=== PATIENT | female | born 1960 | race Caucasian/White ===

== ENCOUNTER 2024-05-11 07:57 | Outpatient (OUT) | payer OTHER, SELFPAY ==
--- NOTE | 2024-05-11 08:07 | MM_ITS ---
Patient Name: NATHAN GONZALEZ MR#: [id number] : 1960 Exam Date: 05/11/2024 Ordering Doctor: Non-Staff Physician RADIOLOGY REPORT PROCEDURE: MM TOMOSYNTHESIS DIAGNOSTIC BI, 05/11/2024, 08:11 US BREAST LT LIMITED, 05/11/2024, 08:34 COMPARISON: MG MAMM SCREEN 3D TIARA CAD, 03/26/2023. INDICATIONS: Left Breast Cyst Calculator Name NCI Breast Cancer Risk Assessment Tool 5 Year Breast Cancer Risk Not Reported. Lifetime Breast Cancer Risk Not Reported. Personal Breast Cancer No Personal Ovarian Cancer No Treatments None Family Cancers None LOCATION: [facility] BREAST COMPOSITION: There are scattered areas of fibroglandular density. FINDINGS: DIAGNOSTIC CATEGORY 2--BENIGN FINDING. NO CHANGE FROM COMPARISON. Scattered benign-appearing nodules are present. Scattered benign-appearing calcifications are present. Scattered benign-appearing lymph nodes are present. RIGHT BREAST: No significant suspicious finding. LEFT BREAST: No significant suspicious finding. Ultrasound demonstrates at the 8 o'clock position 2.4 cm from the nipple 2.1 x 1.3 x 1.9 cm area of anechoic echogenicity likely a tiny cyst. The previously noted cystic lesion is not definitively seen RECOMMENDATIONS: ROUTINE MAMMOGRAM AND CLINICAL EVALUATION IN 12 MONTHS. PLEASE NOTE: A NORMAL MAMMOGRAM DOES NOT EXCLUDE THE POSSIBILITY OF BREAST CANCER. A CLINICALLY SUSPICIOUS PALPABLE LUMP SHOULD BE BIOPSIED. Dictated by: Christopher Zhou MD on 05/11/2024 at 08:52 Approved by: Christopher Zhou MD on 05/11/2024 at 08:53
--- NOTE | 2024-05-11 08:08 | XR_ITS ---
The [address] [address] Patient Name: NATHAN GONZALEZ MRN: [id number] date: 1960 Sex: F Assigned Patient Location: [facility] Current Patient Location: [facility] Accession/Order Number: [id number] Exam Date: 05/11/2024 08:51 Report Date: 05/11/2024 20:10 At the request of: NON-STAFF PHYSICIAN Procedure: XR chest 2V EXAM: XR chest 2V HISTORY: Shortness Of Breath COMPARISON: None. TECHNIQUE: Upright PA and lateral chest x-ray FINDINGS: The heart is not enlarged and the vasculature is not distended. No acute infiltrate, effusion or pneumothorax is identified. Mild flattening of the hemidiaphragms suggest COPD. The osseous structures are grossly intact. Mild scoliosis the spine is noted. XR/XR chest 2V IMPRESSION: No acute infiltrate or evidence of cardiac decompensation. Direct comparison with a previous study may be helpful in determining the chronicity of these findings. Electronically authenticated by: JANET CLARK Date: 05/11/2024 20:10
== END 2024-05-11 07:58 | disposition home or self-care (01) ==
LOC: MAMMO 07:57
DX: N60.02 Solitary cyst of left breast (principal); R06.02 Shortness of breath
CPT/HCPCS: 71046; 76642; 77066; G0279

== ENCOUNTER 2024-05-23 18:49 | Outpatient (OUT) | payer OTHER, SELFPAY ==
--- NOTE | 2024-05-23 | US_ITS ---
The [address] [address] Patient Name: NATHAN GONZALEZ MRN: [id number] date: 1960 Sex: F Assigned Patient Location: [place] Current Patient Location: Accession/Order Number: [id number] Exam Date: 05/23/2024 19:48 Report Date: 05/23/2024 22:14 At the request of: QI DILLON Procedure: US venous doppler LE LT US venous doppler LE LT, 05/23/2024 6:48 PM CDT: History: TENDERNESS OF LEFT CALF M79.662. Comparison: None. Technique: Grayscale, color Doppler, and spectral Doppler imaging of the deep veins of the left lower extremity were performed. Findings: The deep veins of the left lower extremity demonstrate normal compression, Spectral flow, and color Doppler signal. There is no evidence of deep vein thrombosis. US/US venous doppler LE LT Impression: No evidence of deep vein thrombosis within the left lower extremity. Electronically authenticated by: NILESH BARAJAS Date: 05/23/2024 22:14
== END 2024-05-23 18:50 | disposition home or self-care (01) ==
PROVIDERS: PCP Internal Medicine; Visit Provider Physician Assistant
DX: I73.9 Peripheral vascular disease, unspecified (principal); M79.662 Pain in left lower leg
CPT/HCPCS: 93971

== ENCOUNTER 2024-11-17 12:34 | Outpatient (OUT) | payer OTHER, SELFPAY ==
--- OUTSIDE RECORDS SUMMARY | 2024-11-17 12:37 | XMS_ITS | CCD ---
Author Organization [facility] Care Team Providers Care 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 Name Role Phone Anand Manning MD Primary Care Provider [phone] ANAND MANNING Attending Unavailable MARIA ISABEL PHAM Attending Unavailable MARIA ISABEL PHAM Attending Unavailable MARIA ISABEL PHAM Attending Unavailable Allergies Allergy Classification Reported Allergen(s) Allergy Type Date of Onset Reaction(s) Facility (7 sources) gabapentin Drug Allergy 4 Other [facility] Work Phone: (7 sources) Sulfamethizole Allergy to substance 4 [facility] (7 sources) Sulfamethoxazole / Trimethoprim Drug Allergy 4 Rash [facility] (7 sources) Sulfur Drug Allergy 6 [facility] (7 sources) Respiratory Syncytial Virus Vaccine, Recombinant Allergy to substance 4 [facility] Medications Current Medications Medication Drug Class(es) Dates Sig (Normalized) Sig (Original) [id number] 200 actuat albuterol 0.09 mg/actuat metered dose inhaler (7 sources) beta2-Adrenergic Agonist Start: 3 take 2 puff(s) by inhalation every four hours albuterol HFA 90 mcg/act inhaler Inhale 2 puffs every 4 (four) hours if needed 08/02/2023 Active ARIPiprazole 2 mg oral tablet (2 sources) Atypical Antipsychotic Start: 5 take 1 tablet by mouth once daily ARIPiprazole (Abilify) 2 MG tablet Take 2 mg by mouth Daily 10/23/2024 Active 24 hr buPROPion hydrochloride 150 mg extended release oral tablet (2 sources) Aminoketone Start: 4 take 1 tablet by mouth once daily buPROPion XL (Wellbutrin XL) 150 MG 24 hr tablet Take 150 mg by mouth Daily 06/27/2024 Active busPIRone hydrochloride 10 mg oral tablet (2 sources) Start: 5 take 1 tablet by mouth once daily busPIRone (Buspar) 10 MG tablet Take 10 mg by mouth 1 (one) time each day 10/23/2024 Active clopidogrel 75 mg oral tablet (7 sources) P2Y12 Platelet Inhibitor take 1 tablet by mouth once daily clopidogrel (Plavix) 75 MG tablet Take 75 mg by mouth Daily Active hydrOXYzine pamoate 50 mg oral capsule (2 sources) Antihistamine Start: 5 hydrOXYzine pamoate (Vistaril) 50 MG capsule Take 50 mg by mouth as needed at bedtime for anxiety 10/23/2024 Active 24 hr isosorbide mononitrate 30 mg extended release oral tablet (7 sources) Nitrate Vasodilator take 1 tablet by mouth in the morning, then take 1 tablet by mouth every twenty-four hours isosorbide mononitrate ER (Imdur) 30 MG 24 hr tablet Take 30 mg by mouth in the morning. Do not crush or chew.. Active lisinopril 5 mg oral tablet (7 sources) Angiotensin Converting Enzyme Inhibitor Start: 4 take 1 tablet by mouth once daily lisinopril 5 MG tablet Indications: Atrioventricular gay re-entry tachycardia (CMS/HCC) Take 1 tablet (5 mg) by mouth Daily 90 tablet 2 05/24/2024 Active meloxicam 7.5 mg oral tablet (7 sources) Nonsteroidal Anti-inflammatory Drug Start: 4 End: 5 take 1 tablet by mouth every twenty-four hours as needed meloxicam (Mobic) 7.5 MG tablet Take 7.5 mg by mouth Daily as needed 02/28/2024 10/25/2024 Discontinued (Other) methylPREDNISolone (6 sources) Corticosteroid Start: 4 End: 5 methylPREDNISolone (Medrol Dospak) 4 MG tablets Indications: De Quervain's tenosynovitis, left Follow schedule on package instructions 21 tablet 08/02/2024 10/25/2024 Discontinued (Therapy completed) Start: 08-02-2024 methylPREDNISo lone (Medrol Dospak) 4 MG tablets Indications: De Quervain's tenosynovitis, left Follow schedule on package instructions 21 tablet 08/02/2024 Active 24 hr metoprolol succinate 25 mg extended release oral tablet (7 sources) beta-Adrenergic Dorota take 1 tablet by mouth once daily metoprolol succinate XL (Toprol-XL) 25 MG 24 hr tablet Take 25 mg by mouth Daily Do not crush or chew. Active mirtazapine 7.5 mg oral tablet (2 sources) Start: 10-23-19 take 1 tablet by mouth at bedtime mirtazapine (Remeron) 7.5 MG tablet Take 7.5 mg by mouth at bedtime 10/23/2024 Active rosuvastatin calcium 40 mg oral tablet (7 sources) HMG-CoA Reductase Inhibitor take 1 tablet by mouth at bedtime rosuvastatin (Crestor) 40 MG tablet Take 40 mg by mouth at bedtime Active sertraline 50 mg oral tablet (2 sources) Serotonin Reuptake Inhibitor Start: 09-22-20 take 1 tablet by mouth once daily sertraline (Zoloft) 50 MG tablet Take 50 mg by mouth Daily 09/22/2024 Active tiZANidine 4 mg oral tablet (2 sources) Central alpha-2 Adrenergic Agonist Start: 10-25-19 End: 11-04-19 take 1 tablet by mouth every eight hours for muscle spasms tiZANidine (Zanaflex) 4 MG tablet Indications: Muscle spasms of neck Take 1 tablet (4 mg) by mouth every 8 (eight) hours if needed for muscle spasms for up to 10 days 30 tablet 10/25/2024 11/04/2024 Active Problems Active Problems Problem Classification Problem Date Documented Date Episodic/Chronic Cardiac dysrhythmias (7 sources) Re-entrant atrioventricular node tachycardia; Translations: [Atrioventricular gay re-entry tachycardia] Onset: 08-08-2020 05-12-2024 Chronic Headache; including migraine (2 sources) Headache; Translations: [Left-sided headache] 10-25-2024 Episodic Mood disorders (4 sources) Moderate major depression, single episode; Translations: [Major depressive disorder, single episode, moderate] Onset: 10-25-2024 10-25-2024 Chronic Osteoarthritis (7 sources) Osteoarthritis; Translations: [Unspecified osteoarthritis, unspecified site] Onset: 02-02-2018 05-12-2024 Chronic Other circulatory disease (6 sources) History of cerebrovascular accident without residual deficits; Translations: [Personal history of transient ischemic attack (TIA), and cerebral infarction without residual deficits] Onset: 10-25-2024 10-25-2024 Episodic Other connective tissue disease (2 sources) Tenosynovitis of left radial styloid; Translations: [Radial styloid tenosynovitis [de Quervain]] 08-02-2024 Episodic Other connective tissue disease (2 sources) Muscle spasm of cervical muscle of neck; Translations: [Other muscle spasm] 10-25-2024 Episodic Other connective tissue disease (2 sources) Other symptoms and signs involving the musculoskeletal system; Translations: [Other musculoskeletal symptoms referable to limbs] 10-25-2024 Episodic Other nervous system disorders (4 sources) Paresthesia of left upper limb; Translations: [Paresthesia of skin] 10-25-2024 Episodic Other screening for suspected conditions (not mental disorders or infectious disease) (2 sources) Patient encounter status; Translations: [Encounter for screening for malignant neoplasm of colon] 08-02-2024 Episodic Peripheral and visceral atherosclerosis (16 sources) Intermittent claudication; Translations: [Peripheral vascular disease, unspecified] Onset: 07-21-2023 05-12-2024 Chronic Past or Other Problems Problem Classification Problem Date Documented Da te Episodic/Chronic Cardiac dysrhythmias (7 sources) Palpitations; Translations: [Palpitations] Onset: 03-11-2011 05-12-2024 Episodic Headache; including migraine (2 sources) Headache; including migraine 10-25-2024 Nonspecific chest pain (7 sources) Acute chest pain; Translations: [Chest pain, unspecified] Onset: 07-21-2023 05-12-2024 Episodic Other injuries and conditions due to external causes (7 sources) Injury of head; Translations: [Unspecified injury of head, initial encounter] Onset: 01-03-2017 05-12-2024 Episodic Other nutritional; endocrine; and metabolic disorders (7 sources) Underweight; Translations: [Underweight] Onset: 05-12-2024 05-12-2024 Episodic Spondylosis; intervertebral disc disorders; other back problems (14 sources) Backache; Translations: [Dorsalgia, unspecified] Onset: 02-02-2018 05-12-2024 Episodic Sprains and strains (7 sources) Neck sprain; Translations: [Sprain of joints and ligaments of unspecified parts of neck, initial encounter] Onset: 01-03-2017 05-12-2024 Episodic Superficial injury; contusion (14 sources) Contusion of face; Translations: [Contusion of other part of head, initial encounter] Onset: 01-03-2017 05-12-2024 Episodic Syncope (7 sources) Syncope; Translations: [Syncope and collapse] Onset: 05-12-2024 05-12-2024 Episodic Unclassified (2 sources) Left arm weakness 10-25-2024 Unclassified (2 sources) Peripheral arterial disease (CMS/HCC) 10-25-2024 Viral infection (7 sources) Disease caused by 2019-nCoV; Translations: [COVID-19] Onset: 10-15-2021 05-12-2024 Episodic Vital Signs Date Time Vital Sign Value Performing Clinician Gabriel dougherty 10-25-2024 08:10-0500 Body height 172.7 cm Maria Isabel Hemmer PA Work Phone: [facility] 10-25-2024 08:10-0500 Body mass index (BMI) [Ratio] 17.42 kg/m2 Maria Isabel Hemmer PA Work Phone: [facility] 10-25-2024 08:10-0500 Body weight 51.98 kg Maria Isabel Hemmer PA Work Phone: [facility] 10-25-2024 08:10-0500 Diastolic blood pressure 64 mm[Hg] Maria Isabel Hemmer PA Work Phone: [facility] 10-25-2024 08:10-0500 Heart rate 72 /min Maria Isabel Hemmer PA Work Phone: [facility] 10-25-2024 08:10-0500 Respiratory rate 16 /min Maria Isabel Hemmer PA Work Phone: [facility] 10-25-2024 08:10-0500 SaO2% (BldA) [Mass fraction] 96 % Maria Isabel Hemmer PA Work Phone: [facility] 10-25-2024 08:10-0500 Systolic blood pressure 110 mm[Hg] Maria Isabel Hemmer PA Work Phone: [facility] 08-02-2024 11:04-0400 Body height 172.7 cm Maria Isabel Hemmer PA Work Phone: [facility] 08-02-2024 11:04-0400 Body mass index (BMI) [Ratio] 16.97 kg/m2 Maria Isabel Hemmer PA Work Phone: [facility] 08-02-2024 11:04-0400 Body weight 50.62 kg Maria Isabel Hemmer PA Work Phone: [facility] 08-02-2024 11:04-0400 Diastolic blood pressure 82 mm[Hg] Maria Isabel Hemmer PA Work Phone: [facility] 08-02-2024 11:04-0400 Heart rate 93 /min Maria Isabel Hemmer PA Work Phone: [facility] 08-02-2024 11:04-0400 Respiratory rate 16 /min Maria Isabel Hemmer PA Work Phone: [facility] 08-02-2024 11:04-0400 SaO2% (BldA) [Mass fraction] 97 % Maria Isabel Hemmer PA Work Phone: [facility] 08-02-2024 11:04-0400 Systolic blood pressure 126 mm[Hg] Maria Isabel Hemmer PA Work Phone: [facility] Encounters Encounter Date Encounter Type Care Provider Facility Start: 10-25-2024 End: 10-25-2024 Bamboo flowsheet Maria Isabel Flores Hemmer PA Work Phone: [facility] Start: 10-25-2024 End: 10-25-2024 Bamboo flowsheet Maria Isabel M Hemmer PA Work Phone: [facility] Start: 10-25-2024 End: 10-25-2024 Office outpatient visit 25 minutes Maria Isabel Flores Hemmer PA Work Phone: [facility] Comment on above: Muscle spasms of nec k (Primary Dx); Left-sided headache; Left arm weakness; Paresthesia of left arm; Peripheral arterial disease (CMS/HCC); History of CVA (cerebrovascular accident) without residual deficits; Current moderate episode of major depressive disorder without prior episode (HCC) (CMS/HCC) Start: 10-25-2024 End: 10-25-2024 ambulatory MARIA ISABEL Valente SANTANA Not Available Start: 09-19-2024 End: 09-20-2024 Telephone encounter Maria Isabel Pham PA Work Phone: [facility] Start: 08-02-2024 End: 08-02-2024 Bamboo flowsheet Maria Isabel Pham PA Work Phone: [facility] Start: 08-02-2024 End: 08-02-2024 Bamboo flowsheet Maria Isabel Valente Santana PA Work Phone: [facility] Start: 08-02-2024 End: 08-02-2024 Office outpatient visit 15 minutes Maria Isabel Pham PA Work Phone: [facility] Comment on above: De Quervain's tenosy novitis, left (Primary Dx); Screening for malignant neoplasm of colon Start: 08-02-2024 End: 08-02-2024 ambulatory MARIA ISABEL PHAM Not Available Start: 05-23-2024 End: 05-23-2024 ambulatory MARIA ISABEL Valente SANTANA Not Available Start: 05-12-2024 End: 05-12-2024 ambulatory ANAND MANNING Not Available Procedures Date Procedure Procedure Detail Performing Clinician Start: 05-11-2024 Mammography Maria Isabel Foxvalente sauceda PA Work Phone: Plan of Treatment Date Care Activity Detail Author Start: 09-08-2027 Screening for malign ant neoplasm of colon [facility] Start: 05-11-2025 Screening for malign ant neoplasm of breast Mammogram [facility] Start: 04-17-2025 Influenza vaccination Influenza Vacc ine (#1) [facility] Comment on above: Postponed from 06/19 (Patient Refused) Start: 10-25-2024 End: 10-25-2025 CT Head WO contrast CT head wo IV contrast Imaging Routine Left-sided headache Left arm weakness Paresthesia of left arm Peripheral arterial disease (CMS/HCC) History of CVA (cerebrovascular accident) without residual deficits Expected: 10/25/2024, Expires: 10/25/2025 [facility] Work Phone: Comment on above: Expected: 10/25/2024 , Expires: 10/25/2025 Start: 10-25-2024 End: 10-25-2024 Patient encounter procedure 10/25/2024 8:00 AM EST Office Visit [facility] [address] [place] [address] Maria Isabel Pham PA [address] [place] [address] Arrived [facility] Comment on above: Arrived Start: 08-02-2024 End: 08-02-2025 Noninvasive colorectal cancer DNA and occult blood screening [Presence] in Stool Cologuard colon cancer screening Lab Routine Screening for malignant neoplasm of colon Expected: 08/02/2024 (Approximate), Expires: 08/02/2025 [facility] Work Phone: Comment on above: Expected: 08/02/2024 (Approximate), Expires: 08/02/2025 Start: 08-02-2024 End: 08-02-2024 Patient encounter procedure 08/02/2024 11:00 AM EDT Office Visit [facility] [address] [place] [address] Maria Isabel Pham PA [address] [place] [address] Arrived [facility] Comment on above: Arrived Start: 06-19-2024 Influenza vaccination Influenza Vacc ine (#1) [facility] Start: 1991 Screening for malign ant neoplasm of cervix [facility] Start: 1982 Screening for malign ant neoplasm of cervix Pap Smear [facility] Start: 1961 Screening for malign ant neoplasm of colon [facility] Immunizations Immunization Date Immunization Notes Care Provider Su randle 01-11-2016 hepatitis A vaccine, adult dosage Maria Isabel CORDOVA Work Phone: [facility] Payers Date Payer Category Payer Private Health Insurance JOURDAN WHITTINGTON [id number] 2023 Unknown [id number] 1960 Unknown [id number] 1960 Unknown [id number] 1960 Unknown [id number] 1960 Unknown [id number] Social History Date Type Detail Facility Start: 05-12-2024 Tobacco smoking stat [facility] Ex-smoker [facility] History of tobacco use Current smoker [facility] History of tobacco use Cigarette Smoker [facility] Start: 05-12-2024 Tobacco use and exposure Smoke less tobacco non-user [facility] Start: 05-23-2024 End: 10-25-2024 Alcoholic beverage intake Ex-drinker (finding) [facility] Start: 05-23-2024 End: 10-25-2024 History of Social function [facility] Start: 05-23-2024 End: 10-25-2024 Tobacco use panel [facility] Start: 1960 Sex assigned at Not on file [facility] History of Present illness Narrative 10-25-2024 ART Oneal - 10/25/2024 8:00 AM EST Note Date & Type Note Facility 10-25-2024 History of Presen t illness Narrative Images from the original note were not included. Subjective Patient ID: Shi Valenzuela is a 63 y.o. female who presents for left arm pain. Shi is present today for evaluation of left arm pain. Admits pain and numbness all the time but last it got worse, she did get a headache with sharp pains on the left side and numbness on the left side of her face that she was not sure was d/t the pain in her left arm or not. The numbness in her face has resolved, still having sharp pains in her head, still has the numbness in her whole arm. Left arm feels weaker. On , felt like her eyes couldn't focus for a few minutes, like there was a film on them. Eye drops helped. Also having neck pain, did try heat which relaxed it a little, also tried ice, but that did not help. Neck pain got worse last night. Denies any recent injuries or overuse. Used to see a chiropractor in [place]. She was seen on 08/02/24 Dx. Walker's Tensynovitis, rx'd Medrol daina vik and she states that did help. States her moved her up here from [place] after living there for 17 years. When they moved to [place], he ended up leaving her and going to move in with his daughter. They had been together for 41 years. She has had a hard time dealing with this and is seeing a mental health specialist in [place], Kerry Guzman, [facility]. Medications are helping. Current Outpatient Medications on File Prior to Visit Medication Sig Dispense Refill ARIPiprazole (Abilify) 2 MG tablet Take 2 mg by mouth Daily buPROPion XL (Wellbutrin XL) 150 MG 24 hr tablet Take 150 mg by mouth Daily busPIRone (Buspar) 10 MG tablet Take 10 mg by mouth 1 (one) time each day hydrOXYzine pamoate (Vistaril) 50 MG capsule Take 50 mg by mouth as needed at bedtime for anxiety mirtazapine (Remeron) 7.5 MG tablet Take 7.5 mg by mouth at bedtime sertraline (Zoloft) 50 MG tablet Take 50 mg by mouth Daily albuterol HFA 90 mcg/act inhaler Inhale 2 puffs every 4 (four) hours if needed clopidogrel (Plavix) 75 MG tablet Take 75 mg by mouth Daily isosorbide mononitrate ER (Imdur) 30 MG 24 hr tablet Take 30 mg by mouth in the morning. Do not crush or chew.. lisinopril 5 MG tablet Take 1 tablet (5 mg) by mouth Daily 90 tablet 2 metoprolol succinate XL (Toprol-XL) 25 MG 24 hr tablet Take 25 mg by mouth Daily Do not crush or chew. rosuvastatin (Crestor) 40 MG tablet Take 40 mg by mouth at bedtime [DISCONTINUED] meloxicam (Mobic) 7.5 MG tablet Take 7.5 mg by mouth Daily as needed [DISCONTINUED] methylPREDNISolone (Medrol Dospak) 4 MG tablets Follow schedule on package instructions 21 tablet 0 No current facility-administered medications on file prior to visit. I have reviewed and reconciled the history and medication list with the patient today. Allergies Allergen Reactions Gabapentin Other confusion Rsvpref3 Vaccine Recombinant Adjuvanted [Respiratory Syncytial Virus Vaccine, Recombinant] Sulfamethizole Sulfur Sulfamethoxazole-Trimethoprim Rash Social History Tobacco Use Smoking status: Former Types: Cigarettes Smokeless tobacco: Never Vaping Use Vaping status: Never Used Substance Use Topics Alcohol use: Not Currently Drug use: Yes Types: Marijuana Family History Problem Relation Name Age of Onset Cancer Mother Stroke Paternal Grandmother Heart disease Paternal Grandfather Past Medical History: Diagnosis Date Allergic Benzodiazepine abuse in remission (CMS/HCC) Chronic hepatitis C without hepatic coma (CMS/HCC) Idiopathic scoliosis of lumbar region Marijuana smoker PVD (peripheral vascular disease) (CMS/HCC) Sciatica, right side Spondylolisthesis at L4-L5 level Spondylolisthesis at L5-S1 level Stroke (CMS/HCC) 1990 Tobacco dependence Vitamin D deficiency Past Surgical History: Procedure Laterality Date TUBAL LIGATION 1992 VASCULAR SURGERY Right 07/24/2023 Cath with Stent Placement SFA Visit Vitals BP 110/64 Pulse 72 Resp 16 Ht 5' 8 Wt 114 lb 9.6 oz SpO2 96% BMI 17.42 kg/m Smoking Status Former BSA 1.58 m Review of Systems Constitutional: Negative for chills, fatigue and fever. Respiratory: Negative for cough, shortness of breath and wheezing. Cardiovascular: Negative for chest pain, palpitations and leg swelling. Gastrointestinal: Negative for abdominal pain, constipation, diarrhea, nausea and vomiting. Musculoskeletal: Positive for arthralgias. Skin: Negative for rash. Neurological: Positive for weakness, numbness and headaches. Negative for facial asymmetry and speech difficulty. Objective Physical Exam Constitutional: General: She is not in acute distress. Appearance: Normal appearance. She is well-developed. HENT: Head: Normocephalic and atraumatic. Eyes: General: No scleral icterus. Conjunctiva/sclera: Conjunctivae normal. Cardiovascular: Rate and Rhythm: Normal rate and regular rhythm. Heart sounds: Normal heart sounds. No murmur heard. Pulmonary: Effort: Pulmonary effort is normal. No respiratory distress. Breath sounds: Normal breath sounds. No wheezing, rhonchi or rales. Musculoskeletal: Right hand: Normal pulse. Left hand: Normal pulse. Cervical back: Spasms (Left), tenderness and bony tenderness present. Pain with movement present. Normal range of motion. Comments: Strength 5/5 for BUE and left shoulder abduction to resistance is 5-/5, electrician second is 5-/5 on left Skin: General: Skin is warm and dry. Neurological: General: No focal deficit present. Mental Status: She is alert and oriented to person, place, and time. Cranial Nerves: Cranial nerves 2-12 are intact. Sensory: Sensation is intact. Motor: Tremor (Fine intention tremor right hand) present. Coordination: Coordination is intact. Gait: Gait is intact. Psychiatric: Mood and Affect: Mood normal. Behavior: Behavior normal. Assessment/Plan Diagnoses and all orders for this visit: Muscle spasms of neck - tiZANidine (Zanaflex) 4 MG tablet; Take 1 tablet (4 mg) by mouth every 8 (eight) hours if needed for muscle spasms for up to 10 days Provided pt with prescription for the above to use as needed. Advised caution as may cause drowsiness. Encouraged gentle heat, gentle stretches. Could consider Massage Therapy. If no improvement, may need PT or x-rays for further evaluation. Left-sided headache - CT head wo IV contrast; Future Due to h/o CVA and current symptoms, will obtain CT of the brain for further evaluation. Will notify pt of results once received. Symptoms have improved, so will not order STAT, but she continues to have weakness and paresthesia. She would like to have this done at [facility]. Left arm weakness - CT head wo IV contrast; Future See above. Paresthesia of left arm - CT head wo IV contrast; Future See above. Peripheral arterial disease (CMS/HCC) - CT head wo IV contrast; Future Continue Plavix as prescribed. H/o stent placed in right leg. History of CVA (cerebrovascular accident) without residual deficits - CT head wo IV contrast; Future See above. Current moderate episode of major depressive disorder without prior episode (HCC) (CMS/HCC) Continue to follow up with Psychiatric Nurse Practitioner as per her instruction. Doing well with current medications. Follow up if symptoms worsen or fail to improve. documented in this encounter [facility] Telephone encounter Note 09-19-2024 Telephone Encounter - KEISHA MIN - 09/19/2024 1:47 PM EST Note Date & Type Note Facility 09-19-2024 Telephone encount er Note Patient notified [facility] Note 09-19-2024 Telephone Encounter - KEISHA MIN - 09/19/2024 1:47 PM ESTTelephone Encounter - ART Oneal - 09/19/2024 8:31 AM EST Note Date & Type Note Facility 09-19-2024 Miscellaneous Notes Formattin g of this note might be different from the original. Patient notified Please let pt know that her Cologuard was negative. Repeat screening in three years. documented in this encounter [facility] Telephone encounter Note 09-19-2024 Telephone Encounter - ART Oneal - 09/19/2024 8:31 AM EST Note Date & Type Note Facility 09-19-2024 Telephone encount er Note Please let pt know that her Cologuard was negative. Repeat screening in three years. [facility] History of Present illness Narrative 08-02-2024 ART Oneal - 08/02/2024 11:00 AM EDT Note Date & Type Note Facility 08-02-2024 History of Presen t illness Narrative Images from the original note were not included. Subjective Patient ID: Shi Valenzuela is a 63 y.o. female who presents for pain in hand. Shi is present today for evaluation of pain in hand. Admits left hand pain that radiates into her left wrist, pain is constant, describes pain as sharp, ache, burning, rates pain an 8/10, has been hurting for about a week, worse at night. 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 She has tried meloxicam, ibuprofen, heat, ice and none of those have helped. Feels like it is getting stiffer, getting worse. Feels like she is limited in how she can use it without severe pain. Current Outpatient Medications on File Prior to Visit Medication Sig Dispense Refill albuterol HFA 90 mcg/act inhaler Inhale 2 puffs every 4 (four) hours if needed clopidogrel (Plavix) 75 MG tablet Take 75 mg by mouth Daily isosorbide mononitrate ER (Imdur) 30 MG 24 hr tablet Take 30 mg by mouth in the morning. Do not crush or chew.. lisinopril 5 MG tablet Take 1 tablet (5 mg) by mouth Daily 90 tablet 2 meloxicam (Mobic) 7.5 MG tablet Take 7.5 mg by mouth Daily as needed metoprolol succinate XL (Toprol-XL) 25 MG 24 hr tablet Take 25 mg by mouth Daily Do not crush or chew. rosuvastatin (Crestor) 40 MG tablet Take 40 mg by mouth at bedtime No current facility-administered medications on file prior to visit. I have reviewed and reconciled the history and medication list with the patient today. Allergies Allergen Reactions Gabapentin Other confusion Rsvpref3 Vaccine Recombinant Adjuvanted [Respiratory Syncytial Virus Vaccine, Recombinant] Sulfamethizole Sulfur Sulfamethoxazole-Trimethoprim Rash Social History Tobacco Use Smoking status: Former Types: Cigarettes Smokeless tobacco: Never Vaping Use Vaping status: Never Used Substance Use Topics Alcohol use: Not Currently Drug use: Yes Types: Marijuana Family History Problem Relation Name Age of Onset Cancer Mother Stroke Paternal Grandmother Heart disease Paternal Grandfather Past Medical History: Diagnosis Date Allergic Benzodiazepine abuse in remission (CMS/HCC) Chronic hepatitis C without hepatic coma (CMS/HCC) Idiopathic scoliosis of lumbar region Marijuana smoker PVD (peripheral vascular disease) (CMS/HCC) Sciatica, right side Spondylolisthesis at L4-L5 level Spondylolisthesis at L5-S1 level Tobacco dependence Vitamin D deficiency Past Surgical History: Procedure Laterality Date CARDIAC SURGERY 07/24/2023 Cardiac Cath with stent place right SFA TUBAL LIGATION 1991 Visit Vitals BP 126/82 Pulse 93 Resp 16 Ht 5' 8 Wt 111 lb 9.6 oz SpO2 97% BMI 16.97 kg/m Smoking Status Former BSA 1.56 m Review of Systems Constitutional: Negative for chills, fatigue and fever. Respiratory: Negative for cough, shortness of breath and wheezing. Cardiovascular: Negative for chest pain, palpitations and leg swelling. Gastrointestinal: Negative for abdominal pain, constipation, diarrhea, nausea and vomiting. Musculoskeletal: Positive for arthralgias. Skin: Negative for rash. Objective Physical Exam Constitutional: General: She is not in acute distress. Appearance: Normal appearance. She is well-developed. HENT: Head: Normocephalic and atraumatic. Eyes: General: No scleral icterus. Conjunctiva/sclera: Conjunctivae normal. Cardiovascular: Rate and Rhythm: Normal rate and regular rhythm. Heart sounds: Normal heart sounds. No murmur heard. Pulmonary: Effort: Pulmonary effort is normal. No respiratory distress. Breath sounds: Normal breath sounds. No wheezing, rhonchi or rales. Musculoskeletal: Left wrist: Deformity (Arthritic changes noted of joints), tenderness (radial aspect of thumb and wrist) and bony tenderness present. No swelling. Decreased range of motion. Normal pulse. 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 Normal sensation. Comments: Markedly positive Manny's test Skin: General: Skin is warm and dry. Neurological: General: No focal deficit present. Mental Status: She is alert and oriented to person, place, and time. Psychiatric: Mood and Affect: Mood normal. Behavior: Behavior normal. Assessment/Plan Diagnoses and all orders for this visit: De Quervain's tenosynovitis, left - methylPREDNISolone (Medrol Dospak) 4 MG tablets; Follow schedule on package instructions Start Medrol Dosepak as prescribed. Reminded pt to take it with food. No NSAIDs while on steroid. Tylenol ok. OTC Diclofenac cream topically up to four times a day. Thumb Spica splint daily for the next two weeks. If no improvement with the above, would plan to refer pt to Ortho for further evaluation and treatment. Screening for malignant neoplasm of colon - Cologuard colon cancer screening; Future Provided patient with order to complete Cologuard testing as a screening for colon cancer. If results are negative, will plan to recheck a Cologuard in 3 years. If results are positive, would need to provide patient with referral for a screening Colonoscopy for further evaluation. Follow up if symptoms worsen or fail to improve. documented in this encounter [facility] Healthcare Evaluation note Note Date & Type Note Facility Evaluation note Diagnosis De Quervain's tenosynovitis, left- Primary Screening for malignant neoplasm of colon documented in this encounter [facility] Healthcare Evaluation note Note Date & Type Note Facility Evaluation note Diagnosis Muscle spasms of neck- Primary Left-sided headache Headache Left arm weakness Other musculoskeletal symptoms referable to limbs Paresthesia of left arm Disturbance of skin sensation Peripheral arterial disease (CMS/HCC) Unspecified peripheral vascular disease History of CVA (cerebrovascular accident) without residual deficits Transient ischemic attack (TIA), and cerebral infarction without residual deficits Current moderate episode of major depressive disorder without prior episode (HCC) (CMS/HCC) documented in this encounter [facility] Healthcare Summary Purpose Family History No Family History Records Found Advance Directives No Advanced Directives Records Found Additional Source Comments Care Teams (unrecognized sec tion and content) 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 Relationship Specialty Start Date End Date Anand Manning MD [address] [facility] [address] [place] [address] PCP - General Internal Medicine 05/16/24 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 Relationship Specialty Start Date End Date Anand Manning MD [address] [facility] [address] [place] [address] PCP - General Internal Medicine 05/16/24 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 Relationship Specialty Start Date End Date Anand Manning MD [address] [facility] [address] [place] [address] PCP - General Internal Medicine 05/16/24 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 Relationship Specialty Start Date End Date Anand Manning MD [address] [facility] [address] [place] [address] PCP - General Internal Medicine 05/16/24 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 This clinical summary was aggregated from multiple sources. Caution should be exercised in using it in the provision of clinical care. This summary normalizes information from multiple sources, and as a consequence, information in this document may materially change the coding, format and clinical context of patient data. In addition, data may be omitted in some cases. CLINICAL DECISIONS SHOULD BE BASED ON THE PRIMARY CLINICAL RECORDS. [employer] provides no warranty or guarantee of the accuracy or completeness of information in this document.
--- NOTE | 2024-11-17 12:39 | CT_ITS ---
The [address] [address] Patient Name: NATHAN GONZALEZ MRN: [id number] date: 1960 Sex: F Assigned Patient Location: CT Current Patient Location: Accession/Order Number: [id number] Exam Date: 11/17/2024 12:50 Report Date: 11/18/2024 06:25 At the request of: QI DILLON Procedure: CT head/brain wo con EXAMINATION: CT head/brain wo con HISTORY: Left sided headache , dizziness, left facial numbness COMPARISON: No relevant comparison available. TECHNIQUE: Axial CT images were obtained without IV contrast. Dose reduction techniques were achieved by using automated exposure control and/or adjustment of mA and/or kV according to patient size and/or use of iterative reconstruction technique. FINDINGS: BRAIN: No edema, hemorrhage, mass, acute infarction, or inappropriate atrophy. CSF SPACES: No hydrocephalus, subarachnoid hemorrhage, or mass. Appropriate for age. SKULL: No fracture, mass, or other significant visible lesion. SINUSES: No significant mucosal thickening or fluid on the limited views. ORBITS: No appreciable abnormality on the limited views. OTHER: Fatty lump within the scalp just anterior to the vertex most compatible with a benign lipoma. CT/CT head/brain wo con IMPRESSION: 1. Normal CT appearance the brain. No abnormal or suspicious findings to account for patient's symptoms. 2. Clear sinuses. 3. Suspect benign fatty lipoma within the scalp just anterior to the vertex. Electronically authenticated by: ANNMARIE RICH Date: 11/18/2024 06:25
== END 2024-11-17 12:35 | disposition home or self-care (01) ==
LOC: CT 12:35
PROVIDERS: PCP Internal Medicine; Visit Provider Physician Assistant
DX: R51.9 Headache, unspecified (principal); R29.898 Other symptoms and signs involving the musculoskeletal system; R20.2 Paresthesia of skin; I73.9 Peripheral vascular disease, unspecified; Z86.73 Personal history of transient ischemic attack (TIA), and cerebral infarction without residual deficits
CPT/HCPCS: 70450

== ENCOUNTER 2025-01-16 20:11 | Emergency (ER) | payer OTHER, SELFPAY ==
--- OUTSIDE RECORDS SUMMARY | 2025-01-16 20:19 | XMS_ITS | CCD ---
Author Organization [facility] Care Team Providers Care Material Mover Name Role Phone Anand Manning MD Primary Care Provider NITISH IXONG Attending Unavailable MARIA ISABEL DILLON Referring Unavailable MARIA ISABEL DILLON Attending Unavailable ANAND MANNING Attending Unavailable MARIA ISABEL DILLON Attending Unavailable MARIA ISABEL DILLON Attending Unavailable MARIA ISABEL DILLON Attending Unavailable Allergies Allergy Classification Reported Allergen(s) Allergy Type Date of Onset Reaction(s) Facility (13 sources) gabapentin Drug Allergy 4 Other [facility] Work Phone: (13 sources) Sulfamethizole Allergy to substance 4 [facility] (13 sources) Sulfamethoxazole / Trimethoprim Drug Allergy 4 Rash [facility] (13 sources) Sulfur Drug Allergy 6 [facility] (13 sources) Respiratory Syncytial Virus Vaccine, Recombinant Allergy to substance 4 [facility] Medications Current Medications Medication Drug Class(es) Dates Sig (Normalized) Sig (Original) acetaminophen 325 mg / HYDROcodone bitartrate 5 mg oral tablet (3 sources) Opioid Agonist Start: 01-12-2025 End: 01-17-2025 take 1 tablet by mouth every eight hours for pain HYDROcodone-aceta minophen ([place]) 5-325 MG tablet Indications: De Quervain's tenosynovitis, left Take 1 tablet by mouth every 8 (eight) hours if needed for severe pain for up to 5 days 15 tablet 01/12/2025 01/17/2025 Active Start: 11-14-2024 End: 11-19-2024 take 1 tablet by mouth every eight hours for pain HYDROcodone-acetaminophen ([place]) 5-325 MG tablet Indications: Acute pain of left shoulder Take 1 tablet by mouth every 8 (eight) hours if needed for severe pain for up to 5 days 15 tablet 11/14/2024 11/19/2024 Active [id number] 200 actuat albuterol 0.09 mg/actuat metered dose inhaler (13 sources) beta2-Adrenergic Agonist Start: 08-02-2023 take 2 puff(s) by inhalation every four hours albuterol HFA 90 mcg/act inhaler Inhale 2 puffs every 4 (four) hours if needed 08/02/2023 Active amoxicillin 875 mg / clavulanate 125 mg oral tablet (2 sources) Penicillin-class Antibacterial Start: 01-12-2025 End: 01-19-2025 take 1 tablet by mouth in the morning amoxicillin-clavulan ate (Augmentin) 875-125 MG tablet Indications: Acute non-recurrent frontal sinusitis Take 1 tablet (875 mg) by mouth in the morning and 1 tablet (875 mg) in the evening. Take with meals. Do all this for 7 days. 14 tablet 01/12/2025 01/19/2025 Active ARIPiprazole 2 mg oral tablet (8 sources) Atypical Antipsychotic Start: 10-23-2024 take 1 tablet by mouth once daily ARIPiprazole (Abilify) 2 MG tablet Take 2 mg by mouth Daily 10/23/2024 Active benzonatate 200 mg oral capsule (2 sources) Non-narcotic Antitussive Start: 01-12-2025 End: 01-19-2025 take 1 capsule by mouth three times daily as needed for cough benzonatate (Tessalon) 200 MG capsule Indications: Acute bronchitis, unspecified organism Take 1 capsule (200 mg) by mouth 3 (three) times a day as needed for cough for up to 7 days Do not crush or chew. 21 capsule 01/12/2025 01/19/2025 Active 24 hr buPROPion hydrochloride 150 mg extended release oral tablet (8 sources) Aminoketone Start: 06-27-2024 take 1 tablet by mouth once daily buPROPion XL (Wellbutrin XL) 150 MG 24 hr tablet Take 150 mg by mouth Daily 06/27/2024 Active busPIRone hydrochloride 10 mg oral tablet (8 sources) Start: 10-23-2024 take 1 tablet by mouth once daily busPIRone (Buspar) 10 MG tablet Take 10 mg by mouth 1 (one) time each day 10/23/2024 Active clopidogrel 75 mg oral tablet (13 sources) P2Y12 Platelet Inhibitor take 1 tablet by mouth once daily clopidogrel (Plavix) 75 MG tablet Take 75 mg by mouth Daily Active hydrOXYzine pamoate 50 mg oral capsule (8 sources) Antihistamine Start: 10-23-2024 hydrOXYzine pamoate (Vistaril) 50 MG capsule Take 50 mg by mouth as needed at bedtime for anxiety 10/23/2024 Active 24 hr isosorbide mononitrate 30 mg extended release oral tablet (13 sources) Nitrate Vasodilator take 1 tablet by mouth in the morning, then take 1 tablet by mouth every twenty-four hours isosorbide mononitrate ER (Imdur) 30 MG 24 hr tablet Take 30 mg by mouth in the morning. Do not crush or chew.. Active lisinopril 5 mg oral tablet (15 sources) Angiotensin Converting Enzyme Inhibitor Start: 05-24-2024 End: 01-12-2025 take 1 tablet by mouth once daily lisinopril 5 MG tablet Indications: Primary hypertension (CMS/HCC) Take 1 tablet (5 mg) by mouth Daily 90 tablet 3 01/12/2025 Active meloxicam 7.5 mg oral tablet (7 sources) Nonsteroidal Anti-inflammatory Drug Start: 02-28-2024 End: 10-25-2024 take 1 tablet by mouth every twenty-four hours as needed meloxicam (Mobic) 7.5 MG tablet Take 7.5 mg by mouth Daily as needed 02/28/2024 10/25/2024 Discontinued (Other) methylPREDNISolone (6 sources) Corticosteroid Start: 08-02-2024 End: 10-25-2024 methylPREDNISolone (Medrol Dospak) 4 MG tablets Indications: De Quervain's tenosynovitis, left Follow schedule on package instructions 21 tablet 08/02/2024 10/25/2024 Discontinued (Therapy completed) Start: 08-02-2024 methylPREDNISo lone (Medrol Dospak) 4 MG tablets Indications: De Quervain's tenosynovitis, left Follow schedule on package instructions 21 tablet 08/02/2024 Active 24 hr metoprolol succinate 25 mg extended release oral tablet (15 sources) beta-Adrenergic Dorota Start: 01-12-2025 End: 01-12-2025 take 1 tablet by mouth once daily metoprolol succinate XL (Toprol-XL) 25 MG 24 hr tablet Indications: Atrioventricular gay re-entry tachycardia (CMS/HCC) Take 1 tablet (25 mg) by mouth Daily Do not crush or chew. 90 tablet 3 01/12/2025 Active mirtazapine 7.5 mg oral tablet (8 sources) Start: 10-23-2024 take 1 tablet by mouth at bedtime mirtazapine (Remeron) 7.5 MG tablet Take 7.5 mg by mouth at bedtime 10/23/2024 Active rosuvastatin calcium 40 mg oral tablet (13 sources) HMG-CoA Reductase Inhibitor take 1 tablet by mouth at bedtime rosuvastatin (Crestor) 40 MG tablet Take 40 mg by mouth at bedtime Active sertraline 50 mg oral tablet (8 sources) Serotonin Reuptake Inhibitor Start: 09-22-2024 take 1 tablet by mouth once daily sertraline (Zoloft) 50 MG tablet Take 50 mg by mouth Daily 09/22/2024 Active tiZANidine 4 mg oral tablet (8 sources) Central alpha-2 Adrenergic Agonist Start: 10-25-2024 End: 11-04-2024 take 1 tablet by mouth every eight hours for muscle spasms tiZANidine (Zanaflex) 4 MG tablet Indications: Muscle spasms of neck Take 1 tablet (4 mg) by mouth every 8 (eight) hours if needed for muscle spasms for up to 10 days 30 tablet 10/25/2024 Active Problems Active Problems Problem Classification Problem Date Documented Date Episodic/Chronic Acute bronchitis (2 sources) Acute bronchitis; Translations: [Acute bronchitis, unspecified] 01-12-2025 Episodic Cardiac dysrhythmias (15 sources) Re-entrant atrioventricular node tachycardia; Translations: [Atrioventricular gay re-entry tachycardia] Onset: 08-08-2020 05-12-2024 Chronic Essential hypertension (4 sources) Essential hypertension; Translations: [Essential (primary) hypertension] Onset: 01-12-2025 01-12-2025 Chronic Headache; including migraine (2 sources) Headache; Translations: [Left-sided headache] 10-25-2024 Episodic Mood disorders (10 sources) Moderate major depression, single episode; Translations: [Major depressive disorder, single episode, moderate] Onset: 10-25-2024 10-25-2024 Chronic Osteoarthritis (13 sources) Osteoarthritis; Translations: [Unspecified osteoarthritis, unspecified site] Onset: 02-02-2018 05-12-2024 Chronic Other circulatory disease (12 sources) History of cerebrovascular accident without residual deficits; Translations: [Personal history of transient ischemic attack (TIA), and cerebral infarction without residual deficits] Onset: 10-25-2024 10-25-2024 Episodic Other connective tissue disease (8 sources) Tenosynovitis of left radial styloid; Translations: [Radial styloid tenosynovitis [de Quervain]] Onset: 01-12-2025 08-02-2024 Episodic Other connective tissue disease (3 sources) Muscle spasm of cervical muscle of neck; Translations: [Other muscle spasm] 10-25-2024 Episodic Other connective tissue disease (5 sources) Other symptoms and signs involving the musculoskeletal system; Translations: [Other musculoskeletal symptoms referable to limbs] 10-25-2024 Episodic Other nervous system disorders (8 sources) Paresthesia of left upper limb; Translations: [Paresthesia of skin] 10-25-2024 Episodic Other non-traumatic joint disorders (1 source) Pain in left shoulder; Translations: [Pain in joint, shoulder region] 11-22-2024 Episodic Other non-traumatic joint disorders (4 sources) Chronic pain of left upper limb; Translations: [Pain in left wrist] Onset: 01-12-2025 01-12-2025 Episodic Other screening for suspected conditions (not mental disorders or infectious disease) (2 sources) Patient encounter status; Translations: [Encounter for screening for malignant neoplasm of colon] 08-02-2024 Episodic Other upper respiratory infections (2 sources) Acute frontal sinusitis; Translations: [Acute frontal sinusitis, unspecified] 01-12-2025 Episodic Peripheral and visceral atherosclerosis (20 sources) Intermittent claudication; Translations: [Peripheral vascular disease, unspecified] Onset: 07-21-2023 05-12-2024 Chronic Unclassified (2 sources) Chronic pain of left upper limb 01-12-2025 Past or Other Problems Problem Classification Problem Date Documented Da te Episodic/Chronic Cardiac dysrhythmias (13 sources) Palpitations; Translations: [Palpitations] Onset: 03-11-2011 05-12-2024 Episodic Headache; including migraine (2 sources) Headache; including migraine 10-25-2024 Nonspecific chest pain (13 sources) Acute chest pain; Translations: [Chest pain, unspecified] Onset: 07-21-2023 05-12-2024 Episodic Other injuries and conditions due to external causes (13 sources) Injury of head; Translations: [Unspecified injury of head, initial encounter] Onset: 01-03-2017 05-12-2024 Episodic Other nutritional; endocrine; and metabolic disorders (13 sources) Underweight; Translations: [Underweight] Onset: 05-12-2024 05-12-2024 Episodic Spondylosis; intervertebral disc disorders; other back problems (20 sources) Backache; Translations: [Dorsalgia, unspecified] Onset: 02-02-2018 05-12-2024 Episodic Sprains and strains (13 sources) Neck sprain; Translations: [Sprain of joints and ligaments of unspecified parts of neck, initial encounter] Onset: 01-03-2017 05-12-2024 Episodic Superficial injury; contusion (20 sources) Contusion of face; Translations: [Contusion of other part of head, initial encounter] Onset: 01-03-2017 05-12-2024 Episodic Syncope (13 sources) Syncope; Translations: [Syncope and collapse] Onset: 05-12-2024 05-12-2024 Episodic Unclassified (4 sources) Left arm weakness 10-25-2024 Unclassified (2 sources) Peripheral arterial disease (CMS/HCC) 10-25-2024 Viral infection (13 sources) Disease caused by 2019-nCoV; Translations: [COVID-19] Onset: 10-15-2021 05-12-2024 Episodic Results Test Name Value Interpretation Reference Range Facil ity CT HEAD/BRAIN WOon [address] [place] [address] CT Scan Report Signed Patient: NATHAN GONZALEZ MR#: [id number] : 1960 Acct:[id number] Age/Sex: 63 / F ADM Date: 11/17/24 Loc: CT Attending Dr: MARIA ISABEL DILLON Ordering Physician: MARIA ISABEL DILLON Date of Service: 11/17/24 Procedure(s): CT head/brain wo con Accession Number(s): [id number] cc: ANAND MANNING [place] [address] Patient Name: NATHAN GONZALEZ MRN: [facility]:[id number] date: 1960 Sex: F Assigned Patient Location: CT Current Patient Location: Accession/Order Number: [id number] Exam Date: 11/17/2024 12:50 Report Date: 11/18/2024 06:25 At the request of: MARIA ISABEL DILLON Procedure: CT head/brain wo con EXAMINATION: CT head/brain wo con HISTORY: Left sided headache , dizziness, left facial numbness COMPARISON: No relevant comparison available. TECHNIQUE: Axial CT images were obtained without IV contrast. Dose reduction techniques were achieved by using automated exposure control and/or adjustment of mA and/or kV according to patient size and/or use of iterative reconstruction technique. FINDINGS: BRAIN: No edema, hemorrhage, mass, acute infarction, or inappropriate atrophy. CSF SPACES: No hydrocephalus, subarachnoid hemorrhage, or mass. Appropriate for age. SKULL: No fracture, mass, or other significant visible lesion. SINUSES: No significant mucosal thickening or fluid on the limited views. ORBITS: No appreciable abnormality on the limited views. OTHER: Fatty lump within the scalp just anterior to the vertex most compatible with a benign lipoma. CT/CT head/brain wo con IMPRESSION: 1. Normal CT appearance the brain. No abnormal or suspicious findings to account for patient's symptoms. 2. Clear sinuses. 3. Suspect benign fatty lipoma within the scalp just anterior to the vertex. Electronically authenticated by: JUAN HIGGINBOTHAM Date: 11/18/2024 06:25 Dictated By: Juan Higginbotham M.D. Signed By: 11/18/24626 DD/ 4 TD/TT: Furnace Repairer Helper: [facility] Radiology, Radiologist, MD - 11/18/2024 [place] [address] CT Scan Report Signed Patient: NATHAN GONZALEZ MR#: [id number] : 1960 Acct:[id number] Age/Sex: 63 / F ADM Date: 11/17/24 Loc: CT Attending Dr: MARIA ISABEL DILLON Ordering Physician: MARIA ISABEL DILLON of Service: 11/17/24 Procedure(s): CT head/brain wo con Accession Number(s): [id number] cc: ANAND MANNING [address] [address] Patient Name: NATHAN GONZALEZ MRN: [id number] date: 1960 Sex: F Assigned Patient Location: CT Current Patient Location: Accession/Order Number: [id number] Exam Date: 11/17/2024 12:50 Report Date: 11/18/2024 06:25 At the request of: MARIA ISABEL DILLON Procedure: CT head/brain wo con EXAMINATION: CT head/brain wo con HISTORY: Left sided headache , dizziness, left facial numbness COMPARISON: No relevant comparison available. TECHNIQUE: Axial CT images were obtained without IV contrast. Dose reduction techniques were achieved by using automated exposure control and/or adjustment of mA and/or kV according to patient size and/or use of iterative reconstruction technique. FINDINGS: BRAIN: No edema, hemorrhage, mass, acute infarction, or inappropriate atrophy. CSF SPACES: No hydrocephalus, subarachnoid hemorrhage, or mass. Appropriate for age. SKULL: No fracture, mass, or other significant visible lesion. SINUSES: No significant mucosal thickening or fluid on the limited views. ORBITS: No appreciable abnormality on the limited views. OTHER: Fatty lump within the scalp just anterior to the vertex most compatible with a benign lipoma. CT/CT head/brain wo con IMPRESSION: 1. Normal CT appearance the brain. No abnormal or suspicious findings to account for patient's symptoms. 2. Clear sinuses. 3. Suspect benign fatty lipoma within the scalp just anterior to the vertex. Electronically authenticated by: JUAN HIGGINBOTHAM Date: 11/18/2024 06:25 Dictated By: Juan Higginbotham M.D. Signed By: 11/18/24626 DD/ 4 TD/TT: Furnace Repairer Helper: [facility] Radiology Study observation (narrative) [facility] CT HEAD/BRAIN WOOrdered By: Radiologist Radiology on 11-18-2024 [facility] Stemgent e Work Phone: Vital Signs Date Time Vital Sign Value Performing Clinician Faci lity 01-12-2025 15:38-0400 Body height 172.7 cm Maria Isabel Hemmer PA Work Phone: [facility] 01-12-2025 15:38-0400 Body mass index (BMI) [Ratio] 17.67 kg/m2 Maria Isabel Hemmer PA Work Phone: [facility] 01-12-2025 15:38-0400 Body temperature 98.49 [degF] Maria Isabel Hemmer PA Work Phone: [facility] 01-12-2025 15:38-0400 Body weight 52.71 kg Maria Isabel Hemmer PA Work Phone: [facility] 01-12-2025 15:38-0400 Diastolic blood pressure 76 mm[Hg] Maria Isabel Hemmer PA Work Phone: [facility] 01-12-2025 15:38-0400 Heart rate 84 /min Maria Isabel Hemmer PA Work Phone: [facility] 01-12-2025 15:38-0400 Respiratory rate 16 /min Maria Isabel Hemmer PA Work Phone: [facility] 01-12-2025 15:38-0400 SaO2% (BldA) [Mass fraction] 98 % Maria Isabel Hemmer PA Work Phone: [facility] 01-12-2025 15:38-0400 Systolic blood pressure 132 mm[Hg] Maria Isabel Hemmer PA Work Phone: [facility] 10-25-2024 08:10-0500 Body height 172.7 cm Maria Isabel Hemmer PA Work Phone: [facility] 10-25-2024 08:10-0500 Body mass index (BMI) [Ratio] 17.42 kg/m2 Maria Isabel Hemmer PA Work Phone: [facility] 10-25-2024 08:10-0500 Body weight 51.98 kg Maria Isabel Hemmer PA Work Phone: [facility] 10-25-2024 08:10-0500 Diastolic blood pressure 64 mm[Hg] Maria Isabel Hemmer PA Work Phone: [facility] 10-25-2024 08:10-0500 Heart rate 72 /min Maria Isabel Hemmer PA Work Phone: [facility] 10-25-2024 08:10-0500 Respiratory rate 16 /min Maria Isabel Hemmer PA Work Phone: [facility] 10-25-2024 08:10-0500 SaO2% (BldA) [Mass fraction] 96 % Maria Isabel Hemmer PA Work Phone: [facility] 10-25-2024 08:10-0500 Systolic blood pressure 110 mm[Hg] Maria Isabel Hemmer PA Work Phone: [facility] 08-02-2024 11:04-0400 Body height 172.7 cm Maria Isabel Hemmer PA Work Phone: [facility] 08-02-2024 11:04-0400 Body mass index (BMI) [Ratio] 16.97 kg/m2 Maria Isabel Hemmer PA Work Phone: [facility] 08-02-2024 11:04-0400 Body weight 50.62 kg Maria Isabel Hemmer PA Work Phone: [facility] 08-02-2024 11:04-0400 Diastolic blood pressure 82 mm[Hg] Maria Isabel Hemmer PA Work Phone: [facility] 08-02-2024 11:04-0400 Heart rate 93 /min Maria Isabel Hemmer PA Work Phone: [facility] 08-02-2024 11:04-0400 Respiratory rate 16 /min Maria Isabel Hemmer PA Work Phone: [facility] 08-02-2024 11:04-0400 SaO2% (BldA) [Mass fraction] 97 % Maria Isabel Hemmer PA Work Phone: [facility] 08-02-2024 11:04-0400 Systolic blood pressure 126 mm[Hg] Maria Isabel Hemmer PA Work Phone: [facility] Encounters Encounter Date Encounter Type Care Provider Facility Start: 01-12-2025 End: 01-12-2025 Office outpatient visit 25 minutes Maria Isabel CORDOVA Work Phone: [facility] Comment on above: Left arm weakness (P rimary Dx); Paresthesia of left arm; Atrioventricular gay re-entry tachycardia (CMS/HCC); Chronic wrist pain, left; De Quervain's tenosynovitis, left; Acute non-recurrent frontal sinusitis; Acute bronchitis, unspecified organism; Primary hypertension (CMS/HCC) Start: 01-12-2025 End: 01-12-2025 ambulatory MARIA ISABEL DILLON Not Available Start: 01-12-2025 End: 01-12-2025 Bamboo flowsheet Maria Isabel Dillon PA Work Phone: [facility] Start: 01-12-2025 End: 01-12-2025 Bamboo flowsheet Maria Isabel Dillon PA Work Phone: [facility] Start: 11-22-2024 End: 11-22-2024 Bamboo flowsheet Nitish Xiong PT Work Phone: [facility] Start: 11-22-2024 End: 11-22-2024 Bamboo flowsjennifer Xiong PT Work Phone: [facility] Start: 11-22-2024 End: 11-22-2024 ambulatory Nitish Xiong PT Work Phone: [facility] Comment on above: Acute pain of left s houlder (Primary Dx); Muscle spasms of neck; Left arm weakness Start: 11-18-2024 End: 11-18-2024 [facility] Result Encounter Maria Isabel Dillon PA Work Phone: [facility] Unsolicited Start: 11-18-2024 End: 11-18-2024 [facility] Result Encounter Maria Isabel CORDOVA Work Phone: [facility] Unsolicited Start: 10-25-2024 End: 10-25-2024 Bamboo flowsheet Maria Isabel Dillon PA Work Phone: [facility] Start: 10-25-2024 End: 10-25-2024 Bamboo flowsheet Maria Isabel Dillon PA Work Phone: [facility] Start: 10-25-2024 End: 10-25-2024 Office outpatient visit 25 minutes Maria Isabel Dillon PA Work Phone: [facility] Comment on above: Muscle spasms of nec k (Primary Dx); Left-sided headache; Left arm weakness; Paresthesia of left arm; Peripheral arterial disease (CMS/HCC); History of CVA (cerebrovascular accident) without residual deficits; Current moderate episode of major depressive disorder without prior episode (HCC) (CMS/HCC) Start: 10-25-2024 End: 10-25-2024 ambulatory MARIA ISABEL DILLON Not Available Start: 09-19-2024 End: 09-20-2024 Telephone encounter Maria Isabel Dillon PA Work Phone: [facility] Start: 08-02-2024 End: 08-02-2024 Bamboo flowsheet Maria Isabel Dillon PA Work Phone: [facility] Start: 08-02-2024 End: 08-02-2024 Bamboo flowsheet Maria Isabel Dillon PA Work Phone: [facility] Start: 08-02-2024 End: 08-02-2024 Office outpatient visit 15 minutes Maria Isabel Dillon PA Work Phone: [facility] Comment on above: De Quervain's tenosy novitis, left (Primary Dx); Screening for malignant neoplasm of colon Start: 08-02-2024 End: 08-02-2024 ambulatory MARIA ISABEL DILLON Not Available Start: 05-23-2024 End: 05-23-2024 ambulatory MARIA ISABEL DILLON Not Available Start: 05-12-2024 End: 05-12-2024 ambulatory ANAND MANNING Not Available Procedures Date Procedure Procedure Detail Performing Clinician Start: 11-18-2024 CT HEAD/BRAIN WO Maria Isabel Dillon PA Work Phone: Start: 05-11-2024 Mammography Maria Isabel sauceda PA Work Phone: Plan of Treatment Date Care Activity Detail Author Start: 09-08-2027 Screening for malign ant neoplasm of colon [facility] Start: 05-11-2025 Screening for malign ant neoplasm of breast Mammogram [facility] Start: 04-17-2025 Influenza vaccination Influenza Vacc ine (#1) [facility] Comment on above: Postponed from 06/19 (Patient Refused) Start: 01-12-2025 End: 01-12-2025 Patient encounter procedure 01/12/2025 3:30 PM EDT Office Visit [facility] [address] [place] [address] Maria Isabel Dillon PA [address] [place] [address] Arrived [facility] Comment on above: Arrived Start: 12-15-2024 End: 12-15-2024 ambulatory 12/15/2024 10:30 AM EST Treatment [facility] [address] [place] [address] Amelia Hogue, WALL COVERING CONTRACTOR [facility] Start: 12-13-2024 End: 12-13-2024 ambulatory 12/13/2024 9:00 AM EST Treatment [facility] [address] [place] [address] Amelia Hogue, WALL COVERING CONTRACTOR [facility] Start: 12-08-2024 End: 12-08-2024 ambulatory 12/08/2024 10:30 AM EST Treatment [facility] [address] [place] [address] Amelia Hogue, WALL COVERING CONTRACTOR [facility] Start: 12-06-2024 End: 12-06-2024 ambulatory 12/06/2024 9:00 AM EST Treatment [facility] [address] [place] [address] Amelia Hogue, WALL COVERING CONTRACTOR [facility] Start: 12-01-2024 End: 12-01-2024 ambulatory 12/01/2024 10:30 AM EST Treatment [facility] [address] [place] [address] Shirley Hogueissa, WALL COVERING CONTRACTOR [facility] Start: 11-29-2024 End: 11-29-2024 ambulatory 11/29/2024 9:00 AM EST Treatment [facility] [address] [place] [address] Shirley Hogueissa, WALL COVERING CONTRACTOR [facility] Start: 11-25-2024 End: 11-25-2024 ambulatory 11/25/2024 10:30 AM EST Treatment [facility] [address] [place] [address] Shirley Hogueissa, WALL COVERING CONTRACTOR [facility] Start: 11-22-2024 End: 11-22-2024 ambulatory [facility] Comment on above: Acute pain of left s houlder; Muscle spasms of neck; Left arm weakness Start: 10-25-2024 End: 10-25-2025 CT Head WO contrast CT head wo IV contrast Imaging Routine Left-sided headache Left arm weakness Paresthesia of left arm Peripheral arterial disease (CMS/HCC) History of CVA (cerebrovascular accident) without residual deficits Expected: 10/25/2024, Expires: 10/25/2025 [facility] Work Phone: Comment on above: Expected: 10/25/2024 , Expires: 10/25/2025 Start: 10-25-2024 End: 10-25-2024 Patient encounter procedure 10/25/2024 8:00 AM EST Office Visit [facility] [address] [place] [address] Maria Isabel Dillon PA [address] [place] [address] Arrived [facility] Comment on above: Arrived Start: 08-02-2024 End: 08-02-2025 Noninvasive colorectal cancer DNA and occult blood screening [Presence] in Stool Cologuard colon cancer screening Lab Routine Screening for malignant neoplasm of colon Expected: 08/02/2024 (Approximate), Expires: 08/02/2025 [facility] Work Phone: Comment on above: Expected: 08/02/2024 (Approximate), Expires: 08/02/2025 Start: 08-02-2024 End: 08-02-2024 Patient encounter procedure 08/02/2024 11:00 AM EDT Office Visit [facility] [address] [place] [address] Maria Isabel Dillon PA [address] [place] [address] Arrived [facility] Comment on above: Arrived Start: 06-19-2024 Influenza vaccination Influenza Vacc ine (#1) [facility] Start: 1991 Screening for malign ant neoplasm of cervix [facility] Start: 1982 Screening for malign ant neoplasm of cervix Pap Smear [facility] Start: 1961 Screening for malign ant neoplasm of colon [facility] Immunizations Immunization Date Immunization Notes Care Provider [facility] 01-11-2016 hepatitis A vaccine, adult dosage Maria Isabel CORDOVA Work Phone: [facility] Payers Date Payer Category Payer Private Health Insurance [id number] 2023 Unknown [id number] 1960 Unknown [id number] 2.16.84 [id number] 1961 Unknown [id number] 2.16.84 [id number] 1961 Unknown [id number] 2.16.84 [id number] 1961 Unknown [id number] 2.16.84 [id number] 1961 Unknown [id number] 2.16.84 [id number] 1961 Unknown [id number] 2.16.84 [id number] Social History Date Type Detail Facility Start: 05-12-2024 Tobacco smoking stat RUSTIS Ex-smoker [facility] History of tobacco use Current smoker [facility] History of tobacco use Cigarette Smoker [facility] Start: 05-12-2024 Tobacco use and exposure Smoke less tobacco non-user [facility] Start: 05-23-2024 End: 01-12-2025 Alcoholic beverage intake Ex-drinker (finding) [facility] Start: 05-23-2024 End: 01-12-2025 History of Social function [facility] Start: 05-23-2024 End: 01-12-2025 Tobacco use panel [facility] Start: 1960 Sex assigned at Not on file N [facility] Clinical Notes 08-02-2024 to 01-12-2025 ART Oneal - 01/12/2025 3:30 PM EDART Boateng - 10/25/2024 8:00 AM ESTTeleKEISHA Forrester - 09/19/2024 1:47 PM ART Seay - 08/02/2024 11:00 AM EDT Note Date & Type Note Facility 01-12-2025 History of Presen t illness Narrative Images from the original note were not included. HPI Med Refill Additional comments: Metoprolol, lisinopril, hydrocodone Last edited by Cornelia Butler LPN on 01/12/2025 3:41 PM. Subjective Patient ID: Nathan Gonzalez is a 64 y.o. female who presents for URI. Nathan is present today for evaluation of URI. Admits sinus pressure, nasal congestion, runny nose, bilateral ear pain, post nasal drainage, scratchy throat, cough with yellow/green phlegm, wheezing, chills, fatigue. She has been sick for 2 week. She took a COVID test and it was negative. She has been taking Mucinex, tylenol, ibuprofen. States did find a PT place that will take her insurance. Started going to a Chiropractor, Dr. Haimlton. Recently got a job. 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 Current Outpatient Medications on File Prior to Visit Medication Sig Dispense Refill albuterol HFA 90 mcg/act inhaler Inhale 2 puffs every 4 (four) hours if needed ARIPiprazole (Abilify) 2 MG tablet Take 2 mg by mouth Daily buPROPion XL (Wellbutrin XL) 150 MG 24 hr tablet Take 150 mg by mouth Daily busPIRone (Buspar) 10 MG tablet Take 10 mg by mouth 1 (one) time each day clopidogrel (Plavix) 75 MG tablet Take 75 mg by mouth Daily hydrOXYzine pamoate (Vistaril) 50 MG capsule Take 50 mg by mouth as needed at bedtime for anxiety isosorbide mononitrate ER (Imdur) 30 MG 24 hr tablet Take 30 mg by mouth in the morning. Do not crush or chew.. lisinopril 5 MG tablet Take 1 tablet (5 mg) by mouth Daily 90 tablet 2 metoprolol succinate XL (Toprol-XL) 25 MG 24 hr tablet Take 25 mg by mouth Daily Do not crush or chew. mirtazapine (Remeron) 7.5 MG tablet Take 7.5 mg by mouth at bedtime rosuvastatin (Crestor) 40 MG tablet Take 40 mg by mouth at bedtime sertraline (Zoloft) 50 MG tablet Take 50 mg by mouth Daily tiZANidine (Zanaflex) 4 MG tablet Take 1 tablet (4 mg) by mouth every 8 (eight) hours if needed for muscle spasms for up to 10 days 30 tablet 0 No current facility-administered medications on [...] Surgical History: Procedure Laterality Date TUBAL LIGATION 1991 VASCULAR SURGERY Right 07/24/2023 Cath with Stent Placement SFA Visit Vitals BP 132/76 Pulse 84 Temp 98.5 F Resp 16 Ht 5' 8 Wt 116 lb 3.2 oz SpO2 98% BMI 17.67 kg/m Smoking Status Former BSA 1.59 m Review of Systems Constitutional: Positive for chills and fatigue. Negative for fever. HENT: Positive for congestion, ear pain, rhinorrhea, sinus pressure, sinus pain and sore throat. Respiratory: Positive for cough and wheezing. Negative for shortness of breath. Cardiovascular: Negative for chest pain, palpitations and leg swelling. Gastrointestinal: Negative for abdominal pain, constipation, diarrhea, nausea and vomiting. Musculoskeletal: Positive for arthralgias and back pain. Skin: Negative for rash. Objective Physical Exam Constitutional: General: She is not in acute distress. Appearance: She is well-developed. She is ill-appearing (Mildly). HENT: Head: Normocephalic and atraumatic. Right Ear: Ear canal normal. A middle ear effusion is present. Tympanic membrane is not erythematous. Left Ear: Ear canal normal. A middle ear effusion is present. Tympanic membrane is not erythematous. Nose: Congestion present. Right Turbinates: Swollen. Left Turbinates: Swollen. Right Sinus: Frontal sinus tenderness present. Left Sinus: Frontal sinus tenderness present. Mouth/Throat: Mouth: Mucous membranes are moist. Pharynx: Posterior oropharyngeal erythema present. Eyes: General: No scleral icterus. Conjunctiva/sclera: Conjunctivae normal. Cardiovascular: Rate and Rhythm: Normal rate and regular rhythm. Heart sounds: Normal heart sounds. No murmur heard. Pulmonary: Effort: Pulmonary effort is normal. No respiratory distress. Breath sounds: No wheezing, rhonchi or rales. Comments: Harsh lung sounds throughout, cough with deep inspiration Musculoskeletal: Comments: Left wrist in a wrist brace. Prominent 1st MCP joint Lymphadenopathy: Cervical: No cervical adenopathy. Skin: General: Skin is warm and dry. Neurological: General: No focal deficit present. Mental Status: She is alert and oriented to person, place, and time. Psychiatric: Mood and Affect: Mood normal. Behavior: Behavior normal. Assessment/Plan Diagnoses and all orders for this visit: Left arm weakness - Ambulatory referral to Physical Therapy; Future Provided pt with referral to Physical Therapy E&T. Paresthesia of left arm - Ambulatory referral to Physical Therapy; Future This has improved for pt with Chiropractor. Atrioventricular gay re-entry tachycardia (CMS/HCC) - metoprolol succinate XL (Toprol-XL) 25 MG 24 hr tablet; Take 1 tablet (25 mg) by mouth Daily Do not crush or chew. Refill provided on the above. Pulse is controlled at this time. Will continue to monitor. Chronic wrist pain, left Continue brace to left wrist for now. De Quervain's tenosynovitis, left - HYDROcodone-acetaminophen ([place]) 5-325 MG tablet; Take 1 tablet by mouth every 8 (eight) hours if needed for severe pain for up to 5 days - Ambulatory referral to Physical Therapy; Future Provided pt with small supply of [place] to have on hand as needed. If no improvement with PT, would plan to refer to Ortho for possible injection over the tendon. Acute non-recurrent frontal sinusitis - amoxicillin-clavulanate (Augmentin) 875-125 MG tablet; Take 1 tablet (875 mg) by mouth in the morning and 1 tablet (875 mg) in the evening. Take with meals. Do all this for 7 days. Start the above as directed. Reviewed potential s/e with patient. Encouraged probiotic while on antibiotic. Increase water intake, get plenty of rest. Can continue to take OTC medication for symptomatic relief. Follow up if no improvement in one week. Acute bronchitis, unspecified organism - benzonatate (Tessalon) 200 MG capsule; Take 1 capsule (200 mg) by mouth 3 (three) times a day as needed for cough for up to 7 days Do not crush or chew. Can take the above as needed for cough. Primary hypertension (CMS/HCC) - lisinopril 5 MG tablet; Take 1 tablet (5 mg) by mouth Daily Patient's blood pressure is currently well controlled. Continue with current medications and I will continue to monitor. Follow up in about 4 weeks (around 02/09/2025) for Wellness, Fasting Labs. documented in this encounter [facility] 10-25-2024 History of Presen t illness Narrative Images from the original note were not included. Subjective Patient ID: Nathan Gonzalez is a 63 y.o. female who presents for left arm pain. Nathan is present today for evaluation of left [...] overuse. Used to see a chiropractor in [place]. She was seen on 08/02/24 Dx. Walker's Tensynovitis, rx'd Medrol dose vik and she states that did help. States her moved her up here from [place] after living there for 17 years. When they moved to [place], he ended up leaving her and going to move in with his daughter. They had been together for 41 years. She has had a hard time dealing with this and is seeing a mental health specialist in [place], [facility]. Medications are helping. 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 Left arm weakness - CT head [...] fail to improve. documented in this encounter [facility] 09-19-2024 Telephone encount er Note Patient notified [facility] 09-19-2024 Miscellaneous Notes Formattin g of this note might be different from the original. Patient notified Please let pt know that her Cologuard was negative. Repeat screening in three years. documented in this encounter [facility] 09-19-2024 Telephone encount er Note Please let pt know that her Cologuard was negative. Repeat screening in three years. [facility] 08-02-2024 History of Presen t illness Narrative Images from the original note were not included. Subjective Patient ID: Nathan Gonzalez is a 63 y.o. female who presents for pain in hand. Nathan is present today for evaluation of pain in hand. Admits left hand pain that radiates into her left wrist, pain is constant, describes pain as sharp, ache, burning, rates pain an 8/10, has been hurting for about a week, worse at night. 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 She has tried meloxicam, [...] motion. Normal pulse. Left hand: Decreased strength (Automatic Blocker). Normal sensation. Comments: Markedly positive Manny's test [...] improve. documented in this encounter [facility] Evaluation note Diagnosis De Quervain's tenosynovitis, left- Primary Screening for malignant neoplasm of colon documented [facility]* Diagnosis Muscle spasms of neck- Primary Left-sided [...] episode (HCC) (CMS/HCC) [facility] Diagnosis Acute pain of left shoulder- Primary Muscle spasms of neck Left arm weakness Other musculoskeletal symptoms referable to limbs [facility] Diagnosis Left arm weakness- Primary Other musculoskeletal symptoms referable to limbs Paresthesia of left arm Disturbance of skin sensation Atrioventricular gay re-entry tachycardia (CMS/HCC) Chronic wrist pain, left De Quervain's tenosynovitis, left Acute non-recurrent frontal sinusitis Acute bronchitis, unspecified organism Primary hypertension (CMS/HCC) Unspecified essential hypertension [facility]* Rehabilitation - Outpatient (Routine) - Pending Review Specialty Diagnoses / Procedures Referred By Kala khan Referred To Contact Physical Therapy Diagnoses Acute pain of left shoulder Muscle spasms of neck Left arm weakness Procedures AR OFFICE/OUTPATIENT NEW HIGH MDM 60 MINUTES Maria Isabel Dillon PA [address] [facility] [address] [place] [address] Phone: tel: fax: Nitish Xiong, PT [address] [facility] [address] [place] [address] Phone: tel: fax: Referral ID Status Reason Start Date Expiration Date Visits Requested Visits Authorized [id number] Pending Review Specialty Services Required 11/22/2024 05/13/2025 1 3 [facility] Summary Purpose Family History No Family History Records Found Advance Directives No Advanced Directives Records Found Additional Source Comments Care Teams (unrecognized sec tion and content) Material Mover Relationship Specialty Start Date End Date Anand Manning MD [address] [place] [address] PCP - General Internal Medicine 05/16/24 Material Mover Relationship Specialty Start Date End Date Anand Manning MD [address] [place] [address] PCP - General Internal Medicine 05/16/24 Material Mover Relationship Specialty Start Date End Date Anand Manning MD [address] [place] [address] PCP - General Internal Medicine 05/16/24 Material Mover Relationship Specialty Start Date End Date Anand Manning MD [address] [place] [address] PCP - General Internal Medicine 05/16/24 Material Mover Relationship Specialty Start Date End Date Anand Manning MD [address] [place] [address] PCP - General Internal Medicine 05/16/24 Material Mover Relationship Specialty Start Date End Date Anand Manning MD [address] [place] [address] PCP - General Internal Medicine 05/16/24 Material Mover Relationship Specialty Start Date End Date Anand Manning MD [address] [place] [address] PCP - General Internal Medicine 05/16/24 Material Mover Relationship Specialty Start Date End Date Anand Manning MD [address] [place] [address] PCP - General Internal Medicine 05/16/24 Material Mover Relationship Specialty Start Date End Date Anand Manning MD [address] [facility] [address] [place] [address] PCP - General Internal Medicine 05/16/24 Material Mover Relationship Specialty Start Date End Date Anand Manning MD [address] [facility] [address] [place] [address] PCP - General Internal Medicine 05/16/24 Reason for Visit (unrecogniz ed section and content) Reason Comments Med Refill Metoprolol, lisinopr il, hydrocodone INFORMATION SOURCE (unrecogn ized section and content) DATE CREATED AUTHOR 01/14/2025 [facility] FOR RECORDS PERTAINING TO PATIENTS WHO ARE [...] BE BASED ON THE PRIMARY CLINICAL RECORDS. [employer] provides no warranty or guarantee of the accuracy or completeness of information in this document.
[2025-01-16 20:21] VITALS: BP 141/73; PULSE 76; TEMP 36.5; O2SAT 100; BMI 18.2
--- NOTE | 2025-01-16 20:36 | PC.NURSE ---
pt c/o left rib pain after attempting to reach for something and felt a popping sensation in left rib area.
--- NOTE | 2025-01-16 20:43 | ED_ITS ---
HPI HPI - General Adult General Chief complaint: Back Pain/Injury Stated complaint: rib pain Time Seen by Provider: 01/16/25 20:17 Source: patient Mode of arrival: walk-in Limitations: no limitations History of Present Illness HPI narrative: This 64-year-old female with a history of tobacco use presents for evaluation of left-sided rib pain. The patient states she was changing the oil in her truck today while standing on a stool and was reaching into the truck to change the oil when she felt a popping sensation in her left anterior rib cage area. Since that time she has had pain with any movement or deep breathing. She denies any wing chest pain or shortness of breath. She did not fall or injure herself at that time. She states she is currently taking Tessalon Perles and an antibiotic after seeing her physician last week for an upper respiratory tract infection. She is still coughing but states the phlegm is hard to get up because of the pain in her left rib cage area. She has not had any fever. She has not had any hemoptysis. She has no lower extremity pain or swelling. Related Data Allergies Allergy/AdvReac Type Severity Reaction Status Date / Time fentanyl (From Sublimaze Allergy Mild Rash Verified 01/16/25 20:21 (PF)) Opioid HPI Opioid Management Most Recent Opioid Data: Last Pain Scale 5 01/16/25 21:45 01/16/25 Review of Systems ROS Status of ROS 10 or more systems reviewed and unremark able except as noted in history and below PFSH PFSH Social History Little interest or pleasure in doing things: not at all Feeling down, depressed, or hopeless: not at all Exam Narrative Exam Narrative: Vital signs and Nursing Notes reviewed: Patient is afebrile with a normal pulse, blood pressure is mildly elevated 141/73, she has not hypoxic with pulse ox of 100% on room air General: Awake, alert, oriented, thin female resting comfortably on the stretcher, occasional moist cough noted, at the time of coughing patient winces in pain and holds her left chest wall otherwise well-appearing no respiratory distress HEENT: Normocephalic atraumatic, mucous membranes are moist and pink, eyes are clear, normal conjunctiva, vision is grossly intact, posterior pharynx is normal in appearance. Neck: Supple, no JVD Chest: Faint expiratory wheezing appreciated greatest in the posterior upper lung johnson, no rhonchi or rales appreciated, occasional moist cough, tenderness in the left anterior mid to lower chest wall, no crepitus appreciated CVS: Regular rate and rhythm S1-S2, no murmurs rubs or gallops, pulses are brisk and equal bilaterally ABD: Soft, nondistended, nontender, no rebound guarding or rigidity, bowel sounds are normal, no pulsatile masses appreciated Extremities: Moving all extremities, no lower extremity tenderness or swelling noted, negative Homans' sign, pulses are brisk and equal bilaterally Skin: Normal in appearance without rash,pallor, petechiae or purpura Neuro: No focal deficits Constitutional Vital Signs, click to edit/add: Last Vital Signs Temp 97.7 F 01/16/25 20:21 Pulse 76 01/16/25 20:21 Resp 17 01/16/25 20:21 BP 141/73 01/16/25 20:21 Pulse Ox 100 01/16/25 20:21 O2 Del Method Room Air 01/16/25 20:21 Course Vital Signs Vital signs: Vital Signs Temperature 97.7 F 01/16/25 20:21 Pulse Rate 76 01/16/25 20:21 Respiratory Rate 17 01/16/25 20:21 Blood Pressure 141/73 01/16/25 20:21 Pulse Oximetry 100 01/16/25 20:21 Oxygen Delivery Method Room Air 01/16/25 20:21 Temperature 97.7 F 01/16/25 20:21 Pulse Rate 76 01/16/25 20:21 Respiratory Rate 17 01/16/25 20:21 Blood Pressure 141/73 01/16/25 20:21 Pulse Oximetry 100 01/16/25 20:21 Oxygen Delivery Method Room Air 01/16/25 20:21 Medical Decision Making MDM Narrative Medical decision making narrative: This 64-year-old female, smoker, with a history of scoliosis presents for evaluation of acute left-sided rib pain that started after she was standing on a stepstool changing the oil in her truck and felt a popping sensation in her anterior rib cage area. She was recently seen at her family physician's office for an upper respiratory tract infection. She states that she was started on antibiotic and given Tessalon Perles. I did review her OARRS report and she also received Fountain at that time. Patient's vital signs are stable. Her lungs are clear. She is tender in the anterior chest wall to palpation without any crepitus or skin rash. An x-ray was done of the ribs and chest and reviewed by radiology. It does not show any pneumothorax rib fracture or other notable findings. She was medicated with a dose of Toradol in the emergency department and discharged home with prescription for Fountain and Flexeril. She was encouraged to quit smoking and follow-up closely with her family physician. The x-ray also showed scoliosis which she was aware of. Discharge Plan Discharge Chief Complaint: Back Pain/Injury Clinical Impression: Rib pain on left side Patient Disposition: Home, Self-Care Time of Disposition Decision: 21:52 Condition: Good Print Language: Samoan Instructions: Musculoskeletal Pain (ED) Referrals: NASIM SHOOK [Primary Care Provider] - 1 week Discharge Date/Time: 01/16/25 22:02
[2025-01-16] MEDS: KETOROLAC TROMETHAMINE 30 MG/ML VIAL IM (21:45)
[2025-01-16] MEDS: HYDROCODONE/ACET 5-325 MG TABLET 2 TAB PO (21:59)
== END 2025-01-16 22:02 | disposition home or self-care (01) ==
PROVIDERS: Emergency Provider Emergency Medicine; PCP Internal Medicine
DX: R07.81 Pleurodynia (principal); F17.200 Nicotine dependence, unspecified, uncomplicated
CPT/HCPCS: 71101; 96372; 99284; J1885

== ENCOUNTER 2025-03-30 09:40 | Outpatient (OUT) | payer OTHER, SELFPAY ==
--- OUTSIDE RECORDS SUMMARY | 2025-03-30 09:44 | XMS_ITS | Encounter Summary ---
Author Organization [facility] Address [address] [facility] [place] [address] Care Team Providers Care Civil Estimator Name Role Phone Anand Manning MD Primary Care Provider [phone] Encounter Details Date Type Department Care Team (Late st Contact Info) Description 11/18/2024 Abstract [facility] [address] [facility] [address] [place] [id number] Anand Manning MD [address] [facility] [address] [place] [address] Social History Tobacco Use Types Packs/Day Years Used Date Smoking Tobacco: Former Cigarettes Smokeless Tobacco: Never Alcohol Use Standard Drinks/Week Comments Not Currently 0 (1 standard drink = 0.6 oz pur e alcohol) Comments Unknown Sex and Gender Information Value Date Recorded Sex Assigned at Not on file Legal Sex Female 4:28 PM EDT Gender Identity Not on file Sexual Orientation Not on file documented as of this encounter Plan of Treatment Not on file documented as of this encounter Visit Diagnoses Not on filedocumented in this encounter Care Teams Civil Estimator Relationship Specialty Start Date End Date Anand Manning MD [address] [facility] [address] [place] [address] PCP - General Internal Medicine 05/16/24 documented as of this encounter
--- OUTSIDE RECORDS SUMMARY | 2025-03-30 09:44 | XMS_ITS | Encounter Summary ---
Author Organization [facility] Address [address] [facility] [place] [address] Care Team Providers Care Manager Mental Health Name Role Phone Anand Manning MD Primary Care Provider [phone] Encounter Details Date Type Department Care Team (Late st Contact Info) Description 12/29/2024 Abstract [facility] [address] [facility] [address] [place] [id number] Anand Manning MD [address] [facility] [address] [place] [address] Social History Tobacco Use Types Packs/Day Years [...] on filedocumented in this encounter Care Teams Manager Mental Health Relationship Specialty Start Date End Date Anand Manning MD [address] [facility] [address] [place] [address] PCP - General Internal Medicine 05/16/24 documented as of this encounter
--- OUTSIDE RECORDS SUMMARY | 2025-03-30 09:44 | XMS_ITS | Encounter Summary ---
Author Organization [facility] Address [address] [facility] [place] [address] Care Team Providers Care Dining Room Attendant Name Role Phone Anand Manning MD Primary Care Provider Encounter Details Date Type Department Care Team (Late st Contact Info) Description 05/23/2024 Clinisync Result Encounter [facility] External Department Unsolicited Qi Pham PA [address] [facility] [address] [place] [address] Social History Tobacco Use Types Packs/Day Years [...] on file documented as of this encounter Procedures Procedure Name Priority Date/Time Associated Diagnosis Comments US VENOUS DOPPLER LE LT 05/23/2024 10:14 PM EDT documented in this encounter Results * US VENOUS DOPPLER LE LT (05/23/2024 10:14 PM EDT) Anatomical Region Laterality Modality Other 05/23/2024 10:1 4 PM EDT Narrative 05/23/2024 10:16 PM EDT The [address] [address] Ultrasound Report Signed Patient: SHI GONZALEZ MR#: [id number] : 1960 Acct:[id number] Age/Sex: 63 / F ADM Date: 05/23/24 Loc: US Attending Dr: QI PHAM Ordering Physician: QI PHAM Date of Service: 05/23/24 Procedure(s): US venous doppler LE LT Accession Number(s): [id number] cc: ANAND MANNING ; QI PHAM The [place] [address] Patient Name: SHI GONZALEZ MRN: [facility]:[id number] date: 1960 Sex: F Assigned Patient Location: US Current Patient Location: US Accession/Order Number: [id number] Exam Date: 05/23/2024 19:48 Report Date: 05/23/2024 22:14 At the request of: QI PHAM Procedure: US venous doppler LE LT US venous doppler LE LT, 05/23/2024 6:48 PM CDT: History: TENDERNESS OF LEFT CALF M79.662. Comparison: None. Technique: Grayscale, color Doppler, and spectral Doppler imaging of the deep veins of the left lower extremity were performed. Findings: The deep veins of the left lower extremity demonstrate normal compression, Spectral flow, and color Doppler signal. There is no evidence of deep vein thrombosis. US/US venous doppler LE LT Impression: No evidence of deep vein thrombosis within the left lower extremity. Electronically authenticated by: NILESH AUGUSTE Date: 05/23/2024 22:14 Dictated By: Nilesh Auguste III, M.D. Signed By: 05/23/242215 DD/ 13 TD/TT: National Sales: Procedure Note Radiology, Radiologist, MD - 05/24/2024 [place] [address] Ultrasound Report Signed Patient: SHI GONZALEZMR#: [id number] : 1960cct:[id number] Age/Sex: 63 / FADM Date: 05/23/24 Loc: US Attending Dr: QI PHAM Ordering Physician: QI PHAM Date of Service: 05/23/24 Procedure(s): US venous doppler LE LT Accession Number(s): [id number] cc: ANAND MANNING ; QI PHAM [place] [address] Patient Name: SHI GONZALEZ MRN: [id number] date: 1960 Sex: F Assigned Patient Location: US Current Patient Location: Accession/Order Number: [id number] Exam Date: 05/23/2024 19:48 Report Date: 05/23/2024 22:14 At the request of: QI PHAM Procedure: US venous doppler LE LT US venous doppler LE LT, 05/23/2024 6:48 PM CDT: History: TENDERNESS OF LEFT CALF M79.662. Comparison: None. Technique: Grayscale, color Doppler, and spectral Doppler imaging of thedeep veins of the left lower extremity were performed. Findings: The deep veins of the left lower extremity demonstrate normal compression, Spectral flow, and color Doppler signal. There is no evidence of deep vein thrombosis. US/US venous doppler LE LT Impression: No evidence of deep vein thrombosis within the left lower extremity. Electronically authenticated by: NILESH AUGUSTE Date: 05/23/2024 22:14 Dictated By: Nilesh Auguste III, M.D. Signed By:05/23/242215 DD/ 13 TD/TT: National Sales: Qi Pham PA [facility] Final Result documented in this encounter Visit Diagnoses Not on filedocumented in this encounter Care Teams Dining Room Attendant Relationship Specialty Start Date End Date Anand Manning MD [address] [place] [address] PCP - General Internal Medicine 05/16/24 documented as of this encounter
--- OUTSIDE RECORDS SUMMARY | 2025-03-30 09:44 | XMS_ITS | Encounter Summary ---
Author Organization [facility] Address [address] [facility] [place] [address] Care Team Providers Care Road Packer Operator Name Role Phone Anand Manning MD Primary Care Provider [phone] Encounter Details Date Type Department Care Team (Late st Contact Info) Description 05/17/2024 Abstract [facility] [address] [facility] 110 [place] [phone] Anand Manning MD [address] [facility] 110 [place] [address] Social History Tobacco Use Types Packs/Day Years [...] on filedocumented in this encounter Care Teams Road Packer Operator Relationship Specialty Start Date End Date Anand Manning MD [address] [facility] 110 [place] [address] PCP - General Internal Medicine 05/16/24 documented as of this encounter
--- OUTSIDE RECORDS SUMMARY | 2025-03-30 09:44 | XMS_ITS | Clinical Summary ---
Author Organization [facility] Address [address] [place] [address] Care Team Providers Care Bartender Manager Name Role Phone Anand Manning MD Primary Care Provider Allergies Active Allergy Reactions Criticality Noted Date Comments Gabapentin Other 05/12/2024 confusion Respiratory Syncytial Virus Vaccine, Recombinant 05/12/2024 Sulfamethizole 05/12/2024 Sulfamethoxazole-Trimethoprim Rash Low 2023 Sulfur 01/11/2016 Medications isosorbide mononitrate ER (Imdur) 30 MG 24 hr tablet Take 30 mg by mouth in the morning. Do not crush or chew.. Active rosuvastatin (Crestor) 40 MG tablet Take 40 mg by mouth at bedtime Active clopidogrel (Plavix) 75 MG tablet Take 75 mg by mouth Daily Active albuterol HFA 90 mcg/act inhaler Inhale 2 puffs every 4 (four) hours if needed 3 Active ARIPiprazole (Abilify) 2 MG tablet Take 2 mg by mouth Daily 5 Active buPROPion XL (Wellbutrin XL) 150 MG 24 hr tablet Take 150 mg by mouth Daily 4 Active busPIRone (Buspar) 10 MG tablet Take 10 mg by mouth 1 (one) time each day 5 Active hydrOXYzine pamoate (Vistaril) 50 MG capsule Take 50 mg by mouth as needed at bedtime for anxiety 5 Active mirtazapine (Remeron) 7.5 MG tablet Take 7.5 mg by mouth at bedtime 5 Active sertraline (Zoloft) 50 MG tablet Take 50 mg by mouth Daily 4 Active tiZANidine (Zanaflex) 4 MG tabletIndications :Muscle spasms of neck Take 1 tablet (4 mg) by mouth every 8 (eight) hours if needed for muscle spasms for up to 10 days 30 tablet 5 Active metoprolol succinate XL (Toprol-XL) 25 MG 24 hr tabletIndications :Atrioventricular gay re-entry tachycardia (HCC) Take 1 tablet (25 mg) by mouth Daily Do not crush or chew. 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 10/25/2024 Current moderate episode of major depressive disorder without prior episode 10/25/2024 Syncope 05/12/2024 Underweight 05/12/2024 Intermittent claudication 09/15/2023 Acute chest pain 07/21/2023 Peripheral arterial disease 07/21/2023 COVID-19 10/15/2021 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 Contusion of rib 11/23/2018 Lumbar radiculopathy 03/01/2018 Backache 02/02/2018 Osteoarthritis 02/02/2018 Contusion of face 01/03/2017 Injury of head 01/03/2017 Neck sprain 01/03/2017 Palpitations 03/11/2011 Encounters Date Type Department Care Team Description 01/16/2025 Telephone [facility] [address] [facility] 100 [place] [phone] Anand Manning MD 01/12/2025 3:30 PM EDT Office Visit [facility] [address] [facility] 110 [place] [phone] Maria Isabel Pham PA Left arm weakness (Primary Dx); Paresthesia of left arm; Atrioventricular gay re-entry tachycardia (HCC); Chronic wrist pain, left; De Quervain's tenosynovitis, left; Acute non-recurrent frontal sinusitis; Acute bronchitis, unspecified organism; Primary hypertension 01/12/2025 Bamboo flowsheet [facility] [address] [facility] [address] [place] [address] Maria Isabel Pham PA 01/12/2025 Travel 12/29/2024 Abstract [facility] [address] [facility] 110 [place] [phone] Anand Manning MD 12/28/2024 Telephone [facility] [address] [facility] [address] [place] [phone] Maria Isabel Pham PA from Last 3 Months Immunizations Immunization Administration Dates Next Due Hep A, Adult 01/11/2016 Family History Medical History Relation Name Comments Cancer Mother Heart disease Paternal Grandfather Stroke Paternal Grandmother Relation Name Status Comments Father Mother Paternal Grandfather Paternal Grandmother Social History Tobacco Use Types Packs/Day Years Used Date Smoking Tobacco: Former Cigarettes Smokeless Tobacco: Never Tobacco Cessation:Counseling Given: Not Answered Alcohol Use Standard Drinks/Week Comments Not Currently 0 (1 standard drink = 0.6 oz pur e alcohol) PHQ-2 Answer Date Recorded Patient Health Questionnaire-2 Score 0 01/12/2025 Comments Unknown Sex and Gender Information Value Date Recorded Sex Assigned at Not on file Legal Sex Female 4:28 PM EDT Gender Identity Not on file Sexual Orientation Not on file Last Filed Vital Signs Vital Sign Reading Time Taken Comments Blood Pressure 132/76 01/12/2025 3:38 PM EDT Pulse 84 01/12/2025 3:38 PM EDT Temperature 36.9 C (98.5 F) 01/12/2025 3:38 PM EDT Respiratory Rate 16 01/12/2025 3:38 PM EDT Oxygen Saturation 98% 01/12/2025 3:38 PM EDT Inhaled Oxygen Concentration - - Weight 52.7 kg (116 lb 3.2 oz) 01/12/2025 3:38 P M EDT Height 172.7 cm (5' 8 ) 01/12/2025 3:38 PM EDT Body Mass Index 17.67 01/12/2025 3:38 PM EDT Plan of Treatment Health Maintenance Due Date Last Done Comments CT Colonography 1960 Colonoscopy 1960 FIT 1960 FOBT 1960 Sigmoidoscopy 1960 Pap Smear 1982 Cervical Cancer Screening 1991 HPV/Cotest 1991 Mammogram 05/11/2025 05/11/2024 Influenza Vaccine (Season Ended) 2025 Colorectal Cancer Screening 09/08/2027 FIT-DNA 09/08/2027 09/08/2024 Procedures Procedure Name Priority Date/Time Associated Diagnosis Comments LAB COLOGUARD COLON CANCER SCREEN Routine 09/08/2024 5:00 PM EST Screening for malignant neoplasm of colon *MAMMOGRAM (BILATERAL), DIAGNOSTIC COMPUTER AIDED Routine 05/11/2024 from Last 3 Months or Most Recently Relevant to Health Maintenance Results * Cologuard?? colon cancer screening (09/08/2024 5:00 PM EST) NONINV COLON CA DNA+OCC BLD SCRN STL-IMP Negative Negative 09/18/2024 12:42 AM EST [facility] (CLIA #:[id number]) Comment: NEGATIVE TEST RESULT. A negative Cologuard result indicates a low likelihood that a colorectal cancer (CRC) or advanced adenoma (adenomatous polyps with more advanced pre-malignant features) is present. The chance that a person with a negative Cologuard test has a colorectal cancer is less than 1 in 1500 (negative predictive value >99.9%) or has an advanced adenoma is less than 5.3% (negative predictive value 94.7%). These data are based on a prospective cross-sectional study of 10,000 individuals at average risk for colorectal cancer who were screened with both Cologuard and colonoscopy. (Farida Lugo al, N Engl J Med 2014;370(14):3379-2841) The normal value (reference range) for this assay is negative. COLOGUARD RE-SCREENING RECOMMENDATION: Periodic colorectal cancer screening is an important part of preventive healthcare for asymptomatic individuals at average risk for colorectal cancer. Following a negative Cologuard result, the [place] [employer] Society and U.S. Multi-Society Task Force screening guidelines recommend a Cologuard re-screening interval of 3 years. References: [place] [employer] Guideline for Colorectal Cancer Screening: https://www.cancer.org/cancer/ojyub-aiorpu-pweogi/fwykcximz-xvposaqig-ymsembc/ac s-rec ommendations.html.; Radhames DK, Trisha CR, Missael RealK, Colorectal Cancer Screening: Recommendations for Physicians and Patients from the U.S. Multi-Society Task Force on Colorectal Cancer Screening , Am J Gastroenterology 2017; 112:9337-0847. TEST DESCRIPTION: Composite algorithmic analysis of stool DNA-biomarkers with hemoglobin immunoassay. Quantitative values of individual biomarkers are not reportable and are not associated with individual biomarker result reference ranges. Cologuard is intended for colorectal cancer screening of adults of either sex, 45 years or older, who are at average-risk for colorectal cancer (CRC). Cologuard has been approved for use by the U.S. FDA. The performance of Cologuard was established in a cross sectional study of average-risk adults aged 50-84. Cologuard performance in patients ages 45 to 49 years was estimated by sub-group analysis of near-age groups. Colonoscopies performed for a positive result may find as the most clinically significant lesion: colorectal cancer [4.0%], advanced adenoma (including sessile serrated polyps greater than or equal to 1cm diameter) [20%] or non- advanced adenoma [31%]; or no colorectal neoplasia [45%]. These estimates are derived from a prospective cross-sectional screening study of 10,000 individuals at average risk for colorectal cancer who were screened with both Cologuard and colonoscopy. (Farida Canchola et al, N Engl J Med 2014;370(14):5985-0824.) Cologuard may produce a false negative or false positive result (no colorectal cancer or precancerous polyp present at colonoscopy follow up). A negative Cologuard test result does not guarantee the absence of CRC or advanced adenoma (pre-cancer). The current Cologuard screening interval is every 3 years. ([place] [employer] Society and U.S. Multi-Society Task Force). Cologuard performance data in a 10,000 patient pivotal study using colonoscopy as the reference method can be accessed at the following location: www.JagTag.Heekya/results. Additional description of the Cologuard test process, warnings and precautions can be found at www.[employer]evia.com. Stool specimen (specimen) 09/08/2024 5:00 PM EST 09/10/2024 7:23 AM EST Maria Isabel [facility] RAMIRO GONZALEZ Final Result .[facility] (CLIA #:[id number]) [address] [place] [address], [facility] (CLIA #:[id number]) [address] [place] [address] * *MAMMOGRAM (BILATERAL), DIAGNOSTIC COMPUTER AIDED (05/11/2024) Anatomical Region Laterality Modality Radiographic Rosy ging 05/11/2024 Narrative 05/16/2024 9:39 AM EDT WNL, cyst seen, US also completed. Maria Isabel [facility] XR PROCEDURES Final Result from Last 3 Months or Most Recently Relevant to Health Maintenance Insurance ENRIQUE WHITTINGTON Care Teams Bartender Manager Relationship Specialty Start Date End Date Anand Manning MD [address] [place] [address] PCP - General Internal Medicine 05/16/24
--- OUTSIDE RECORDS SUMMARY | 2025-03-30 09:44 | XMS_ITS | Encounter Summary ---
Author Organization [facility] Address [address] [facility] [place] [address] Care Team Providers Care Customer Relations Representative Name Role Phone Anand Manning MD Primary Care Provider [phone] Encounter Details Date Type Department Care Team (Late st Contact Info) Description 05/12/2024 Abstract [facility] [address] [facility] 110 [place] [phone] Anand Manning MD [address] [facility] 110 [place] [address] Social History Tobacco Use Types Packs/Day Years [...] on filedocumented in this encounter Care Teams Customer Relations Representative Relationship Specialty Start Date End Date Anand Manning MD [address] [facility] 110 [place] [address] PCP - General Internal Medicine 05/16/24 documented as of this encounter
--- OUTSIDE RECORDS SUMMARY | 2025-03-30 09:44 | XMS_ITS | Encounter Summary ---
Author Organization [facility] Address [address] [facility] [place] [address] Care Team Providers Care Crop Picker Name Role Phone Anand Manning MD Primary Care Provider [phone] Encounter Details Date Type Department Care Team (Late st Contact Info) Description 05/12/2024 Abstract [facility] [address] [facility] 110 [place] [phone] Anand Manning MD [address] [facility] 110 [place] [address] Social History Tobacco Use Types Packs/Day Years [...] on filedocumented in this encounter Care Teams Crop Picker Relationship Specialty Start Date End Date Anand Manning MD [address] [facility] 110 [place] [address] PCP - General Internal Medicine 05/16/24 documented as of this encounter
--- OUTSIDE RECORDS SUMMARY | 2025-03-30 09:44 | XMS_ITS | Encounter Summary ---
Author Organization [facility] Address [address] [facility] [place] [address] Care Team Providers Care Contour Stitcher Name Role Phone Anand Manning MD Primary Care Provider Encounter Details Date Type Department Care Team (Late st Contact Info) Description 05/12/2024 Abstract [facility] [address] [facility] 110 [place] [phone] Anand Manning MD [address] [place] 110 [place] [address] Social History Tobacco Use Types Packs/Day Years [...] on filedocumented in this encounter Care Teams Contour Stitcher Relationship Specialty Start Date End Date Anand Manning MD [address] [facility] 110 [place] [address] PCP - General Internal Medicine 05/16/24 documented as of this encounter
--- OUTSIDE RECORDS SUMMARY | 2025-03-30 09:44 | XMS_ITS | Encounter Summary ---
Author Organization [facility] Address [address] [place] [address] Care Team Providers Care Rn Cardiology Name Role Phone Anand Manning MD Primary Care Provider [phone] Encounter Details Date Type Department Care Team (Late st Contact Info) Description 05/24/2024 Abstract [facility] [address] [facility] 110 [place] [phone] Anand Manning MD [address] [place] [facility] 110 [place] [address] Social History Tobacco Use Types Packs/Day Years [...] on filedocumented in this encounter Care Teams Rn Cardiology Relationship Specialty Start Date End Date Anand Manning MD [address] [place] [facility] 110 [place] [address] PCP - General Internal Medicine 05/16/24 documented as of this encounter
--- OUTSIDE RECORDS SUMMARY | 2025-03-30 09:44 | XMS_ITS | Encounter Summary ---
Author Organization [facility] Address [address] [facility] [place] [address] Care Team Providers Care Sheet Metal Supervisor Name Role Phone Anand Manning MD Primary Care Provider [phone] Encounter Details Date Type Department Care Team (Late st Contact Info) Description 05/12/2024 Abstract [facility] [address] [facility] 110 [place] [phone] Anand Manning MD [address] [place] [facility] 110 [place] [address] Social History Tobacco Use Types Packs/Day Years [...] on filedocumented in this encounter Care Teams Sheet Metal Supervisor Relationship Specialty Start Date End Date Anand Manning MD [address] [place] [facility] 110 [place] [address] PCP - General Internal Medicine 05/16/24 documented as of this encounter
--- OUTSIDE RECORDS SUMMARY | 2025-03-30 09:50 | XMS_ITS | CCD ---
Author Organization [facility] Care Team Providers Care Mandrel Maker Name Role Phone Anand Manning MD Primary Care Provider NITISH XIONG Attending Unavailable MARIA ISABEL DILLON Referring Unavailable [...] every eight hours for pain HYDROcodone-aceta minophen ([place]) 5-325 MG tablet Indications: De Quervain's tenosynovitis, left Take 1 tablet by mouth every 8 (eight) hours if needed for severe pain for up to 5 days 15 tablet 01/12/2025 01/17/2025 Active Start: 11-14-2024 End: 11-19-2024 take 1 tablet by mouth every eight hours for pain HYDROcodone-acetaminophen ([place]) 5-325 MG tablet Indications: Acute pain of left shoulder Take 1 tablet by mouth every 8 (eight) hours if needed for severe pain for up to 5 days 15 tablet 11/14/2024 11/19/2024 Active [id number] actuat albuterol 0.09 mg/actuat metered dose [...] sources) Re-entrant atrioventricular node tachycardia; Translations: [Atrioventricular agy re-entry tachycardia] Onset: 08-08-2020 05-12-2024 Chronic Essential [...] Reference Range Facil ity CT HEAD/BRAIN WOon [address] [place] [address] CT Scan Report Signed Patient: NATHAN GONZALEZ MR#: [id number] : 1960 Acct:[id number] Age/Sex: 63 / F ADM Date: 11/17/24 Loc: CT Attending Dr: MARIA ISABEL DILLON Ordering Physician: MARIA ISABEL DILLON Date of Service: 11/17/24 Procedure(s): CT head/brain wo con Accession Number(s): [id number] cc: ANAND MANNING [place] [address] Patient Name: NATHAN GONZALEZ MRN: [facility]:[id number] date: 1960 Sex: F Assigned Patient Location: CT Current Patient Location: Accession/Order Number: [id number] Exam Date: 11/17/2024 12:50 Report Date: 11/18/2024 [...] M.D. 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, Radiologist, MD - 11/18/2024 [place] [address] CT Scan Report Signed Patient: NATHAN GONZALEZ MR#: [id number] : 1960 Acct:[id number] Age/Sex: 63 / F ADM Date: 11/17/24 Loc: CT Attending Dr: MARIA ISABEL DILLON Ordering Physician: MARIA ISABEL DILLON of Service: 11/17/24 Procedure(s): CT head/brain wo con Accession Number(s): [id number] cc: ANAND MANNING [address] [address] Patient Name: NATHAN GONZALEZ MRN: [id number] date: 1960 Sex: F Assigned Patient Location: CT Current Patient Location: Accession/Order Number: [id number] Exam Date: 11/17/2024 12:50 Report Date: 11/18/2024 [...] M.D. 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: [facility] Radiology Study observation (narrative) [facility] CT HEAD/BRAIN WOOrdered By: Radiologist Radiology on 11-18-2024 [facility] [place] Work Phone: Vital Signs Date Time Vital Sign Value Performing Clinician Faci lity 01-12-2025 15:38-0400 Body height 172.7 cm Maria Isabel Hemmer PA Work Phone: [facility] 01-12-2025 15:38-0400 Body mass index (BMI) [Ratio] 17.67 kg/m2 Maria Isabel Hemmer PA Work Phone: [facility] 01-12-2025 15:38-0400 Body temperature 98.49 [degF] Maria Isabel Hemmer PA Work Phone: [facility] 01-12-2025 15:38-0400 Body weight 52.71 kg Maria Isabel Hemmer PA Work Phone: [facility] 01-12-2025 15:38-0400 Diastolic blood pressure 76 mm[Hg] Maria Isabel Hemmer PA Work Phone: [facility] 01-12-2025 15:38-0400 Heart rate 84 /min Maria Isabel Hemmer PA Work Phone: [facility] 01-12-2025 15:38-0400 Respiratory rate 16 /min Maria Isabel Hemmer PA Work Phone: [facility] 01-12-2025 15:38-0400 SaO2% (BldA) [Mass fraction] 98 % Maria Isabel Hemmer PA Work Phone: [facility] 01-12-2025 15:38-0400 Systolic blood pressure 132 mm[Hg] Maria Isabel Hemmer PA Work Phone: [facility] 10-25-2024 08:10-0500 Body height 172.7 cm Maria Isabel Hemmer PA Work Phone: [facility] 10-25-2024 08:10-0500 Body mass index (BMI) [Ratio] 17.42 kg/m2 Maria Isabel Hemmer PA Work Phone: [facility] 10-25-2024 08:10-0500 Body weight 51.98 kg Maria Isabel Hemmer PA Work Phone: [facility] 10-25-2024 08:10-0500 Diastolic blood pressure 64 mm[Hg] Maria Isabel Hemmer PA Work Phone: [facility] 10-25-2024 08:10-0500 Heart rate 72 /min Maria Isabel Hemmer PA Work Phone: [facility] 10-25-2024 08:10-0500 Respiratory rate 16 /min Maria Isabel Hemmer PA Work Phone: [facility] 10-25-2024 08:10-0500 SaO2% (BldA) [Mass fraction] 96 % Maria Isabel Hemmer PA Work Phone: [facility] 10-25-2024 08:10-0500 Systolic blood pressure 110 mm[Hg] Maria Isabel Hemmer PA Work Phone: [facility] 08-02-2024 11:04-0400 Body height 172.7 cm Maria Isabel Hemmer PA Work Phone: [facility] 08-02-2024 11:04-0400 Body mass index (BMI) [Ratio] 16.97 kg/m2 Maria Isabel Hemmer PA Work Phone: [facility] 08-02-2024 11:04-0400 Body weight 50.62 kg Maria Isabel Hemmer PA Work Phone: [facility] 08-02-2024 11:04-0400 Diastolic blood pressure 82 mm[Hg] Maria Isabel Hemmer PA Work Phone: [facility] 08-02-2024 11:04-0400 Heart rate 93 /min Maria Isabel Hemmer PA Work Phone: [facility] 08-02-2024 11:04-0400 Respiratory rate 16 /min Maria Isabel Hemmer PA Work Phone: [facility] 08-02-2024 11:04-0400 SaO2% (BldA) [Mass fraction] 97 % Maria Isabel Hemmer PA Work Phone: [facility] 08-02-2024 11:04-0400 Systolic blood pressure 126 mm[Hg] Maria Isabel Hemmer PA Work Phone: [facility] Encounters Encounter Date Encounter Type Care Provider [...] [address] [place] [address] Maria Isabel Dillon PA [address] [place] [address] Arrived [facility] Comment on above: Arrived Start: 12-15-2024 End: 12-15-2024 ambulatory 12/15/2024 10:30 AM EST Treatment [facility] [address] [place] [address] Amelia Hogue, HEARING STENOGRAPHER [facility] Start: 12-13-2024 End: 12-13-2024 ambulatory 12/13/2024 9:00 AM EST Treatment [facility] [address] [place] [address] Amelia Hogue, HEARING STENOGRAPHER [facility] Start: 12-08-2024 End: 12-08-2024 ambulatory 12/08/2024 10:30 AM EST Treatment [facility] [address] [place] [address] Amelia Hogue, HEARING STENOGRAPHER [facility] Start: 12-06-2024 End: 12-06-2024 ambulatory 12/06/2024 9:00 AM EST Treatment [facility] [address] [place] [address] Amelia Hogue, HEARING STENOGRAPHER [facility] Start: 12-01-2024 End: 12-01-2024 ambulatory 12/01/2024 10:30 AM EST Treatment [facility] [address] [place] [address] Shirley Hogueissa, HEARING STENOGRAPHER [facility] Start: 11-29-2024 End: 11-29-2024 ambulatory 11/29/2024 9:00 AM EST Treatment [facility] [address] [place] [address] Shirley Hogueissa, HEARING STENOGRAPHER [facility] Start: 11-25-2024 End: 11-25-2024 ambulatory 11/25/2024 10:30 AM EST Treatment [facility] [address] [place] [address] Shirley Hogueissa, HEARING STENOGRAPHER [facility] Start: 11-22-2024 End: 11-22-2024 [...] [address] [place] [address] Maria Isabel Dillon PA [address] [place] [address] Arrived [facility] Comment on above: [...] FM [address] [place] [address] Maria Isabel Dillon PA [address] [place] [address] Arrived [facility] Comment on above: [...] Immunization Date Immunization Notes Care Provider Fa [facility] 01-11-2016 hepatitis A vaccine, adult dosage Maria Isabel CORDOVA Work Phone: [facility] Healthcare Payers Date Payer Category Payer Private Health Insurance [id number] 2023 Unknown [id number] 1960 Unknown [id number] 2.16.84 [id number] 1960 Unknown [id number] 2.16.84 [id number] 1960 Unknown [id number] 2.16.84 [id number] 1960 Unknown [id number] 2.16.84 [id number] 1960 Unknown [id number] 2.16.84 [id number] 1960 Unknown [id number] 2.16.84 [id number] Social History Date Type Detail Facility Start: [facility]12[facility]24 [facility] History of tobacco use Current smoker [facility] History of tobacco use Cigarette Smoker [facility] Start: 05-12-2024 Tobacco use and exposure Smoke less tobacco non-user [facility] Start: 05-23-2024 End: 01-12-2025 Alcoholic beverage intake [facility]inker (finding[facility] Start: 05-23-2024 End: 01-12-2025 History of Social function [facility] Start: 05-23-2024 End: 01-12-2025 Tobacco use panel [facility] Start: 1960 Sex assigned at Not on file N [facility] Clinical Notes 08-02-2024 to 01-12-2025 ART [...] insurance. Started going to a Chiropractor, Dr. Hamilton. Recently got a job. 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 Current Outpatient Medications [...] now. De Quervain's tenosynovitis, left - HYDROcodone-acetaminophen ([place]) 5-325 MG tablet; Take 1 tablet by mouth every 8 (eight) hours if needed for severe pain for up to 5 days - Ambulatory referral to Physical Therapy; Future Provided pt with small supply of [place] to have on hand as needed. If [...] Wellness, Fasting Labs. documented in this encounter [facility] 10-25-2024 History of Presen t illness Narrative [...] overuse. Used to see a chiropractor in [place]. She was seen on 08/02/24 Dx. Walker's Tensynovitis, rx'd Medrol dose vik and she states that did help. States her moved her up here from [place] after living there for 17 years. When they moved to [place], he ended up leaving her and going to move in with his daughter. They had been together for 41 years. She has had a hard time dealing with this and is seeing a mental health specialist in [place], [facility]. Medications are helping. Current Outpatient Medications [...] left shoulder abduction to resistance is 5-/5, manager entry is 5-/5 on left Skin: General: Skin [...] would like to have this done at [facility]. Left arm weakness - CT head [...] fail to improve. documented in this encounter [facility] 09-19-2024 Telephone encount er Note Patient notified [facility] 09-19-2024 Miscellaneous Notes Formattin g of this note might be different from the original. Patient notified Please let pt know that her Cologuard was negative. Repeat screening in three years. documented in this encounter [facility] 09-19-2024 Telephone encount er Note Please let pt know that her Cologuard was negative. Repeat screening in three years. [facility] 08-02-2024 History of Presen t illness Narrative [...] worse at night. 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 She has tried meloxicam, [...] motion. Normal pulse. 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 Normal sensation. Comments: Markedly positive Manny's test [...] spasms of neck Left arm weakness Procedures DE OFFICE/OUTPATIENT NEW HIGH MDM 60 MINUTES Maria Isabel Dillon PA [address] [facility] [address] [place] [address] Phone: tel: fax: Nitish Xiong, PT [address] [facility] [address] [place] [address] Phone: tel: fax: Referral ID Status Reason Start Date Expiration Date Visits Requested Visits Authorized [id number] Pending Review Specialty Services Required 11/22/2024 05/13/2025 1 3 [facility] Summary Purpose Family History No Family History Records Found Advance Directives No Advanced Directives Records Found Additional Source Comments Care Teams (unrecognized sec tion and content) Mandrel Maker Relationship Specialty Start Date End Date Anand Manning MD [address] [place] [address] PCP - General Internal Medicine 05/16/24 Mandrel Maker Relationship Specialty Start Date End Date Anand Manning MD [address] [place] [address] PCP - General Internal Medicine 05/16/24 Mandrel Maker Relationship Specialty Start Date End Date Anand Manning MD [address] [place] [address] PCP - General Internal Medicine 05/16/24 Mandrel Maker Relationship Specialty Start Date End Date Anand Manning MD [address] [place] [address] PCP - General Internal Medicine 05/16/24 Mandrel Maker Relationship Specialty Start Date End Date Anand Manning MD [address] [place] [address] PCP - General Internal Medicine 05/16/24 Mandrel Maker Relationship Specialty Start Date End Date Anand Manning MD [address] [place] [address] PCP - General Internal Medicine 05/16/24 Mandrel Maker Relationship Specialty Start Date End Date Anand Manning MD [address] [place] [address] PCP - General Internal Medicine 05/16/24 Mandrel Maker Relationship Specialty Start Date End Date Anand Manning MD [address] [place] [address] PCP - General Internal Medicine 05/16/24 Mandrel Maker Relationship Specialty Start Date End Date Anand Manning MD [address] [facility] [address] [place] [address] PCP - General Internal Medicine 05/16/24 Mandrel Maker Relationship Specialty Start Date End Date Anand Manning MD [address] [facility] [address] [place] [address] PCP - General Internal Medicine 05/16/24 Reason for Visit (unrecogniz ed section and content) Reason Comments Med Refill Metoprolol, lisinopr il, hydrocodone INFORMATION SOURCE (unrecogn ized section and content) DATE CREATED AUTHOR 01/14/2025 [facility] FOR RECORDS PERTAINING TO PATIENTS WHO [...] BE BASED ON THE PRIMARY CLINICAL RECORDS. [employer] provides no warranty or guarantee of the accuracy or completeness of information in this document.
[2025-03-30 10:11] LABS: Basophils Absolute Auto 0.1 10^3/uL (0.0-0.1); Basophils Percent Auto 1.2 % (0.2-2.0); Eosinophils Absolute Auto 0.1 10^3/uL (0.0-0.7); Hematocrit 40.5 % (36.0-48.0); Hemoglobin 13.9 g/dL (12.0-16.0); Immature Granulocytes Abs Auto 0.01 10^3/uL (0.00-0.03); Immature Granulocytes Pct Auto 0.2 % (0.0-0.5); Lymphocytes Absolute Auto 2.4 10^3/uL (1.2-3.8); Lymphocytes Percent Auto 36.7 % (20.5-60.0); Mean Corpuscular HGB Conc 34.3 g/dL (29.9-35.2); Mean Corpuscular Hemoglobin 32.6 pg (26.7-34.0); Mean Corpuscular Volume 95.1 fL (81.0-99.0); Mean Platelet Volume 9.3 fL (9.5-13.5); Monocytes Absolute Auto 0.5 10^3/uL (0.3-0.8); Monocytes Percent Auto 7.8 % (1.7-12.0); Neutrophils Absolute Auto 3.3 10^3/uL (1.4-6.5); Neutrophils Percent Auto 52.1 % (43.0-75.0); Platelet Count 277 10^3/uL (150-450); Red Blood Count 4.26 10^6/uL (4.20-5.40); Red Cell Distribution Width 14.2 % (11.0-15.0); White Blood Count 6.4 10^3/uL (4.0-11.0)
[2025-03-30 11:17] LABS: Alanine Aminotransferase 16 U/L (14-59); Albumin Globulin Ratio 1.2; Albumin Level 3.7 g/dL (3.4-5.0); Alkaline Phosphatase 85 U/L (46-116); Anion Gap 11.8; Aspartate Amino Transferase 14 U/L (15-37); BUN Creatinine Ratio 22.7; Bilirubin Total 0.6 mg/dL (0.2-1.0); Calcium 9.2 mg/dL (8.5-10.1); Carbon Dioxide 29.4 mmol/L (21.0-32.0); Chloride 105 mmol/L (98-107); Chol HDL Ratio 2.6; Cholesterol 147 mg/dL (<=200); Estimated GFR (African America >60 (>=60 mL/min/1.73m^2); Estimated GFR (Non-African Ame >60 (>=60 mL/min/1.73m^2); Globulin 3.1 g/dL; Glucose 96 mg/dL (74-106); HDL Cholesterol 57 mg/dL (40-60); LDL Cholesterol Calculated 79.6 mg/dL; Potassium 4.2 mmol/L (3.5-5.1); Sodium 142 mmol/L (136-145); Total Protein 6.8 g/dL (6.4-8.2); Triglycerides 52 mg/dL (<=150); VLDL CHOLESTEROL 10.4 mg/dL
[2025-03-30 15:17] LABS: Estimated Average Glucose 111 mg/dL; Glycohemoglobin A1C 5.5 % (4.5-6.2)
== END 2025-03-30 09:41 | disposition home or self-care (01) ==
PROVIDERS: PCP Internal Medicine
DX: F41.1 Generalized anxiety disorder (principal); F33.2 Major depressive disorder, recurrent severe without psychotic features; I10 Essential (primary) hypertension; R63.4 Abnormal weight loss
CPT/HCPCS: 36415; 80053; 80061; 83036; 84443; 85025